=== PATIENT | female | born 1935 | race Caucasian/White ===

== ENCOUNTER 2017-08-07 01:23 | Inpatient (IN) | payer MEDICARE, OTHER ==
[2017-08-07] VITALS (7 sets, daily range): BP systolic 109–145; BP diastolic 61–78
[~2017-08-07] VITALS: Ht 157.5 cm; Wt 78.0 kg
[2017-08-07 01:50] LABS: BASOPHILS % 0.2 % (0.0-1.0); EOSINOPHILS % 0.1 % (0.0-6.0); HEMATOCRIT 37.2 % (34.2-44.1); HEMOGLOBIN 11.4 g/dL (12.0-16.0); LYMPHOCYTES # (AUTO) 4.6 (1.0-3.2); LYMPHOCYTES % 27.3 % (18.0-39.1); MEAN CORPUSCULAR HEMOGLOBIN 21.8 pg (28-32); MEAN CORPUSCULAR HGB CONC 30.6 g/dL (31-35); MEAN CORPUSCULAR VOLUME 71.3 fL (81-99); NEUTROPHILS % 65.9 % (38.7-80.0); PLATELET COUNT 410 x10e3/uL (140-360); RED BLOOD COUNT 5.22 x10e6/uL (3.6-5.1); RED CELL DISTRIBUTION WIDTH 19.9 % (11.7-14.4)
[2017-08-07 01:59] LABS: INR 1.13; PROTHROMBIN TIME 13.6 seconds (11.9-14.5)
[2017-08-07] MEDS ORDERED: KLOR-CON 1010 MEQ PO (02:06)
[2017-08-07] MEDS ORDERED: LEVOTHYROXINE75 MCG PO (02:06)
[2017-08-07] MEDS ORDERED: LISINOPRIL2.5 MG PO (02:06)
[2017-08-07] MEDS ORDERED: SERTRALINE HCL50 MG PO (02:06)
[2017-08-07] MEDS ORDERED: PANTOPRAZOLE SO40 MG PO (02:06)
[2017-08-07] MEDS ORDERED: LEVEMIR100 UNIT/1 (02:06)
[2017-08-07] MEDS ORDERED: FISH OIL 1,0001 EAC3 PO (02:06)
[2017-08-07] MEDS ORDERED: FENOFIBRATE145 MG PO (02:06)
[2017-08-07] MEDS ORDERED: METOPROLOL SUCC25 MG PO (02:06)
[2017-08-07] MEDS ORDERED: VITAMIN D31000 UNI1 PO (02:06)
[2017-08-07] MEDS ORDERED: TEMAZEPAM15 MG PO (02:06)
[2017-08-07] MEDS ORDERED: ETODOLAC300 MG PO (02:06)
[2017-08-07] MEDS ORDERED: OMEGA-3100 MG PO (02:06)
[2017-08-07] MEDS ORDERED: [UNRECOGNIZED DRUG - OTHER] PO (02:06)
[2017-08-07] MEDS ORDERED: OXYBUTYNIN CHLOR5 MG PO (02:06)
[2017-08-07 02:09] LABS: ALBUMIN 3.5 g/dL (3.5-5.0); ALBUMIN/GLOBULIN RATIO 0.9 (0.8-2.0); ANION GAP 15.7 mmol/L (8-16); CALCIUM 9.2 mg/dL (8.4-10.2); CREATININE, SERUM 1.31 mg/dL (0.57-1.11); POTASSIUM 3.7 mmol/L (3.5-5.1)
[2017-08-07 02:16] LABS: CREATINE KINASE MB 1.6 ng/mL (0.00-5.00)
--- NOTE | 2017-08-07 04:00 | Diagnostic Imaging Report ---
CHEST 2 VIEWS, Technique: CHEST 2 VIEWS Comparison: None Clinical history: Cough, congestion DISCUSSION: Limited by body habitus. 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 There is prominent likely left mediastinal fat. No consolidation or edema. No pleural effusion or pneumothorax. Mild approximate L1 compression deformity. IMPRESSION: No acute intrathoracic abnormality Signed by: Dr India Ruffin MD on 08/07/2017 3:56 AM
[2017-08-07] MEDS: AZITHROMYCIN 500MG/NS 250 ML 250 ML IV SCH ×2 (04:48→10:44)
[2017-08-07] MEDS: CEFTRIAXONE SOD 1 GM VIAL IV SCH (04:48)
[2017-08-07] MEDS ORDERED: ONDANSETRON HCL INJ 2 MG/ML VIAL IV PRN (05:00)
[2017-08-07] MEDS: FAMOTIDINE 20 MG/2 ML VIAL IV SCH ×2 (05:00→17:00)
--- OUTSIDE RECORDS SUMMARY | 2017-08-07 05:09 | XMS REPORT ---
Author Author [facility] Address Unknown Phone Unavailable Care Team Providers Care Instrument Technician Name Role Phone JACOBYODALIS Unavailable Unavailable ARNOLDO BENITES Unavailable Unavailable Problems This patient has no known problems. Allergies, Adverse Reactions, Alerts This patient has no known allergies or adverse reactions. Medications This patient has no known medications. Results Test Description Test Time Test Comments Text Results Atomic Results Result Comments BLOOD CULTURE 2016-08-15 15:00:00 CULTURE (BEAKER) (test lsta=5341) No growth in 5 days BLOOD [id number] 15:00:00* Test Item Value Reference Range Comments CULTURE (BEAKER) (test fvar=5974) No growth in 5 days POCT-GLUCOSE [id number] 16:10:00* Test Item Value Reference Range Comments POC-GLUCOSE METER (BEAKER) (test awgp=1107) 186 mg/dL 70-110 TESTED AT [facility] [address] [facility] [address] POCT-GLUCOSE [id number] 11:21:00* Test Item Value Reference Range Comments POC-GLUCOSE METER (BEAKER) (test qjsa=1986) 182 mg/dL 70-110 TESTED AT [facility] [address] [facility] [address] CBC W/PLT COUNT & AUTO [id number] 04:51:00* Test Item Value Reference Range Comments WHITE BLOOD CELL COUNT (BEAKER) (test mfoa=395) 12.3 K/ L 4.0-10.0 RED BLOOD CELL COUNT (BEAKER) (test wvlu=207) 4.06 M/ L 4.00-5.00 HEMOGLOBIN (BEAKER) (test tszj=666) 9.9 GM/DL 12.0-15.0 HEMATOCRIT (BEAKER) (test skdl=007) 31.3 % 36.0-45.0 MEAN CORPUSCULAR VOLUME (BEAKER) (test ahtv=564) 76.9 fL 82.0-99.0 MEAN CORPUSCULAR HEMOGLOBIN (BEAKER) (test szod=713) 24.4 pg 27.0-33.0 MEAN CORPUSCULAR HEMOGLOBIN CONC (BEAKER) (test ijce=495) 31.7 GM/DL 32.0- 36.0 RED CELL DISTRIBUTION WIDTH (BEAKER) (test cktq=621) 21.8 % 12.0-15.0 PLATELET COUNT (BEAKER) (test urzg=705) 431 K/CU MM 150-430 MEAN PLATELET VOLUME (BEAKER) (test vqyn=822) 8.4 fL 6.5-10.5 NUCLEATED RED BLOOD CELLS (BEAKER) (test edyx=943) 0 /100 WBC 0-0 NEUTROPHILS RELATIVE PERCENT (BEAKER) (test dsbq=756) 53 % LYMPHOCYTES RELATIVE PERCENT (BEAKER) (test yhnw=032) 30 % MONOCYTES RELATIVE PERCENT (BEAKER) (test htip=828) 8 % EOSINOPHILS RELATIVE PERCENT (BEAKER) (test dycp=646) 8 % BASOPHILS RELATIVE PERCENT (BEAKER) (test jnah=088) 0 % NEUTROPHILS ABSOLUTE COUNT (BEAKER) (test jygz=924) 6.50 K/ L 1.80-8.00 LYMPHOCYTES ABSOLUTE COUNT (BEAKER) (test jxkd=409) 3.70 K/ L 1.48-4.50 MONOCYTES ABSOLUTE COUNT (BEAKER) (test pnmo=188) 1.00 K/ L 0.00-1.30 EOSINOPHILS ABSOLUTE COUNT (BEAKER) (test tlcp=355) 1.00 K/ L 0.00-0.50 BASOPHILS ABSOLUTE COUNT (BEAKER) (test ppwf=335) 0.00 K/ L 0.00-0.20 POCT-GLUCOSE [id number] 04:46:00* Test Item Value Reference Range Comments POC-GLUCOSE METER (BEAKER) (test rzph=9972) 173 mg/dL 70-110 TESTED AT [facility] [address] [facility] [address] POCT-GLUCOSE [id number] 20:39:00* Test Item Value Reference Range Comments POC-GLUCOSE METER (BEAKER) (test ohij=2574) 188 mg/dL 70-110 TESTED AT [facility] [address] [facility] [address] POCT-GLUCOSE [id number] 16:59:00* Test Item Value Reference Range Comments POC-GLUCOSE METER (BEAKER) (test xlej=3274) 249 mg/dL 70-110 TESTED AT [facility] [address] [facility] [address] POCT-GLUCOSE [id number] 11:29:00* Test Item Value Reference Range Comments POC-GLUCOSE METER (BEAKER) (test wnjj=1275) 207 mg/dL 70-110 TESTED AT [facility] [address] [facility] [address] SPUTUM CULTURE + GRAM [id number] 10:50:00* Test Item Value Reference Range Comments CULTURE (BEAKER) (test efge=8489) 2+ Normal respiratory rivka present GRAM STAIN RESULT (BEAKER) (test sfma=8116) 1+ WBCs GRAM STAIN RESULT (BEAKER) (test lvmc=75275) 2+ epithelial cells includes columnar epithelial cells GRAM STAIN RESULT (BEAKER) (test thjm=565730) 2+ budding yeast GRAM STAIN RESULT (BEAKER) (test nmaw=081221) Rare gram positive cocci POCT-GLUCOSE [id number] 05:37:00* Test Item Value Reference Range Comments POC-GLUCOSE METER (BEAKER) (test efqo=1750) 172 mg/dL 70-110 TESTED AT [facility] [address] [facility] [address] CBC W/PLT COUNT & AUTO [id number] 05:23:00* Test Item Value Reference Range Comments WHITE BLOOD CELL COUNT (BEAKER) (test yvbd=920) 13.6 K/ L 4.0-10.0 RED BLOOD CELL COUNT (BEAKER) (test sarq=841) 3.89 M/ L 4.00-5.00 HEMOGLOBIN (BEAKER) (test megu=132) 9.4 GM/DL 12.0-15.0 HEMATOCRIT (BEAKER) (test aers=771) 29.7 % 36.0-45.0 MEAN CORPUSCULAR VOLUME (BEAKER) (test sosw=794) 76.4 fL 82.0-99.0 MEAN CORPUSCULAR HEMOGLOBIN (BEAKER) (test falv=806) 24.3 pg 27.0-33.0 MEAN CORPUSCULAR HEMOGLOBIN CONC (BEAKER) (test mfce=115) 31.8 GM/DL 32.0- 36.0 RED CELL DISTRIBUTION WIDTH (BEAKER) (test tpmw=611) 22.0 % 12.0-15.0 PLATELET COUNT (BEAKER) (test onpu=535) 351 K/CU MM 150-430 MEAN PLATELET VOLUME (BEAKER) (test jccq=825) 8.7 fL 6.5-10.5 NUCLEATED RED BLOOD CELLS (BEAKER) (test ijjm=356) 0 /100 WBC 0-0 NEUTROPHILS RELATIVE PERCENT (BEAKER) (test tkkc=075) 53 % LYMPHOCYTES RELATIVE PERCENT (BEAKER) (test iflv=284) 32 % MONOCYTES RELATIVE PERCENT (BEAKER) (test jmof=580) 7 % EOSINOPHILS RELATIVE PERCENT (BEAKER) (test nusn=004) 8 % BASOPHILS RELATIVE PERCENT (BEAKER) (test minh=564) 0 % NEUTROPHILS ABSOLUTE COUNT (BEAKER) (test xxzh=637) 7.20 K/ L 1.80-8.00 LYMPHOCYTES ABSOLUTE COUNT (BEAKER) (test cwei=632) 4.40 K/ L 1.48-4.50 MONOCYTES ABSOLUTE COUNT (BEAKER) (test swkw=640) 1.00 K/ L 0.00-1.30 EOSINOPHILS ABSOLUTE COUNT (BEAKER) (test gwom=984) 1.00 K/ L 0.00-0.50 BASOPHILS ABSOLUTE COUNT (BEAKER) (test nfhz=709) 0.10 K/ L 0.00-0.20 POCT-GLUCOSE [id number] 21:14:00* Test Item Value Reference Range Comments POC-GLUCOSE METER (BEAKER) (test tjwu=2018) 137 mg/dL 70-110 TESTED AT [facility] [address] [facility] [address] POCT-GLUCOSE [id number] 17:28:00* Test Item Value Reference Range Comments POC-GLUCOSE METER (BEAKER) (test sajn=1306) 260 mg/dL 70-110 TESTED AT [facility] [address] [facility] [address] POCT-GLUCOSE [id number] 11:10:00* Test Item Value Reference Range Comments POC-GLUCOSE METER (BEAKER) (test rghu=7147) 187 mg/dL 70-110 TESTED AT [facility] [address] [facility] [address] POCT-GLUCOSE [id number] 06:29:00* Test Item Value Reference Range Comments POC-GLUCOSE METER (BEAKER) (test jail=2605) 184 mg/dL 70-110 TESTED AT [facility] [address] [facility] [address] COMPREHENSIVE METABOLIC [id number] 05:20:00* Test Item Value Reference Range Comments TOTAL PROTEIN (BEAKER) (test ptwf=671) 6.5 gm/dL 6.0-8.5 ALBUMIN (BEAKER) (test ngmz=7983) 3.2 g/dL 3.5-5.0 ALKALINE PHOSPHATASE (BEAKER) (test ujhs=920) 72 U/L 30-115 BILIRUBIN TOTAL (BEAKER) (test txsf=969) 0.3 mg/dL 0.1-1.3 SODIUM (BEAKER) (test cvnq=007) 140 meq/L 135-148 POTASSIUM (BEAKER) (test xzhp=962) 4.0 meq/L 3.5-5.5 CHLORIDE (BEAKER) (test ufyo=363) 104 meq/L 98-106 CO2 (BEAKER) (test arty=297) 26 meq/L 20-31 BLOOD UREA NITROGEN (BEAKER) (test jvhv=895) 14 mg/dL 10-26 CREATININE (BEAKER) (test mqyo=903) 1.42 mg/dL 0.50-1.20 GLUCOSE RANDOM (BEAKER) (test exao=358) 174 mg/dL 70-110 CALCIUM (BEAKER) (test woal=775) 8.8 mg/dL 8.5-10.5 AST (SGOT) (BEAKER) (test nfnf=032) 21 U/L 5-40 ALT (SGPT) (BEAKER) (test ctxk=158) 12 U/L 6-50 EGFR (BEAKER) (test baxz=4132) 35 mL/min/1.73 sq m ESTIMATED GFR IS NOT ACCURATE CREATININE CLEARANCE IN PREDICTING GLOMERULAR FILTRATION RATE. ESTIMATED GFR IS NOT APPLICABLE FOR DIALYSIS PATIENTS. CBC W/PLT COUNT & AUTO [id number] 04:53:00* Test Item Value Reference Range Comments WHITE BLOOD CELL COUNT (BEAKER) (test dkvm=079) 13.3 K/ L 4.0-10.0 RED BLOOD CELL COUNT (BEAKER) (test ehob=403) 4.10 M/ L 4.00-5.00 HEMOGLOBIN (BEAKER) (test ucpr=343) 9.8 GM/DL 12.0-15.0 HEMATOCRIT (BEAKER) (test tdtl=156) 31.6 % 36.0-45.0 MEAN CORPUSCULAR VOLUME (BEAKER) (test pytx=248) 77.1 fL 82.0-99.0 MEAN CORPUSCULAR HEMOGLOBIN (BEAKER) (test mifw=961) 23.9 pg 27.0-33.0 MEAN CORPUSCULAR HEMOGLOBIN CONC (BEAKER) (test psxh=552) 31.0 GM/DL 32.0- 36.0 RED CELL DISTRIBUTION WIDTH (BEAKER) (test gfoc=258) 21.8 % 12.0-15.0 PLATELET COUNT (BEAKER) (test yojl=325) 329 K/CU MM 150-430 MEAN PLATELET VOLUME (BEAKER) (test yzuu=213) 8.3 fL 6.5-10.5 NUCLEATED RED BLOOD CELLS (BEAKER) (test vkca=545) 0 /100 WBC 0-0 NEUTROPHILS RELATIVE PERCENT (BEAKER) (test wcry=509) 54 % LYMPHOCYTES RELATIVE PERCENT (BEAKER) (test jtsd=909) 30 % MONOCYTES RELATIVE PERCENT (BEAKER) (test qaiu=367) 8 % EOSINOPHILS RELATIVE PERCENT (BEAKER) (test mhiv=895) 8 % BASOPHILS RELATIVE PERCENT (BEAKER) (test knev=252) 0 % NEUTROPHILS ABSOLUTE COUNT (BEAKER) (test ubil=278) 7.10 K/ L 1.80-8.00 LYMPHOCYTES ABSOLUTE COUNT (BEAKER) (test bnig=950) 4.00 K/ L 1.48-4.50 MONOCYTES ABSOLUTE COUNT (BEAKER) (test kfyj=357) 1.10 K/ L 0.00-1.30 EOSINOPHILS ABSOLUTE COUNT (BEAKER) (test rfpg=873) 1.00 K/ L 0.00-0.50 BASOPHILS ABSOLUTE COUNT (BEAKER) (test oner=927) 0.00 K/ L 0.00-0.20 POCT-GLUCOSE [id number] 21:18:00* Test Item Value Reference Range Comments POC-GLUCOSE METER (BEAKER) (test ogos=9253) 195 mg/dL 70-110 TESTED AT [facility] [address] [facility] [address] POCT-GLUCOSE [id number] 17:09:00* Test Item Value Reference Range Comments POC-GLUCOSE METER (BEAKER) (test jyrn=5958) 198 mg/dL 70-110 TESTED AT [facility] [address] [facility] [address] [id number] 12:09:00* Test Item Value Reference Range Comments PROCALCITONIN (BEAKER) (test mllr=0771) 0.15 ng/mL <0.05 SEPSIS RISK (ng/mL)Low: 0.05-0.50Intermediate: 0.51-2.00High: > =2.01POCT-GLUCOSE [id number] 11:21:00* Test Item Value Reference Range Comments POC-GLUCOSE METER (BEAKER) (test fssw=8667) 123 mg/dL 70-110 TESTED AT [facility] [address] [facility] [address] POCT-GLUCOSE [id number] 05:13:00* Test Item Value Reference Range Comments POC-GLUCOSE METER (BEAKER) (test iffe=2387) 147 mg/dL 70-110 TESTED AT [facility] [address] [facility] [address] B-TYPE NATRIURETIC FACTOR (BNP)2016-08-10 05:07:00* Test Item Value Reference Range Comments B-TYPE NATRIURETIC PEPTIDE (BEAKER) (test recv=243) 627 pg/mL 0-100 BASIC METABOLIC [id number] 05:00:00* Test Item Value Reference Range Comments SODIUM (BEAKER) (test amnl=294) 139 meq/L 135-148 POTASSIUM (BEAKER) (test ordi=832) 4.2 meq/L 3.5-5.5 CHLORIDE (BEAKER) (test zxby=765) 103 meq/L 98-106 CO2 (BEAKER) (test kqnu=902) 26 meq/L 20-31 BLOOD UREA NITROGEN (BEAKER) (test anre=755) 12 mg/dL 10-26 CREATININE (BEAKER) (test czon=881) 1.30 mg/dL 0.50-1.20 GLUCOSE RANDOM (BEAKER) (test vbia=122) 133 mg/dL 70-110 CALCIUM (BEAKER) (test xnps=362) 8.8 mg/dL 8.5-10.5 EGFR (BEAKER) (test ttyu=0719) 39 mL/min/1.73 sq m ESTIMATED GFR IS NOT ACCURATE CREATININE CLEARANCE IN PREDICTING GLOMERULAR FILTRATION RATE. ESTIMATED GFR IS NOT APPLICABLE FOR DIALYSIS PATIENTS. CBC W/PLT COUNT & AUTO [id number] 04:47:00* Test Item Value Reference Range Comments WHITE BLOOD CELL COUNT (BEAKER) (test fahi=303) 15.1 K/ L 4.0-10.0 RED BLOOD CELL COUNT (BEAKER) (test pvrz=586) 4.02 M/ L 4.00-5.00 HEMOGLOBIN (BEAKER) (test andm=085) 9.7 GM/DL 12.0-15.0 HEMATOCRIT (BEAKER) (test zlzb=787) 31.1 % 36.0-45.0 MEAN CORPUSCULAR VOLUME (BEAKER) (test tkeg=513) 77.4 fL 82.0-99.0 MEAN CORPUSCULAR HEMOGLOBIN (BEAKER) (test mmxb=364) 24.0 pg 27.0-33.0 MEAN CORPUSCULAR HEMOGLOBIN CONC (BEAKER) (test bafd=394) 31.1 GM/DL 32.0- 36.0 RED CELL DISTRIBUTION WIDTH (BEAKER) (test ixac=984) 22.2 % 12.0-15.0 PLATELET COUNT (BEAKER) (test qlmb=014) 271 K/CU MM 150-430 MEAN PLATELET VOLUME (BEAKER) (test utha=669) 8.2 fL 6.5-10.5 NUCLEATED RED BLOOD CELLS (BEAKER) (test cwdl=494) 0 /100 WBC 0-0 NEUTROPHILS RELATIVE PERCENT (BEAKER) (test ichr=135) 55 % LYMPHOCYTES RELATIVE PERCENT (BEAKER) (test wovm=005) 29 % MONOCYTES RELATIVE PERCENT (BEAKER) (test jqye=884) 10 % EOSINOPHILS RELATIVE PERCENT (BEAKER) (test hljp=665) 6 % BASOPHILS RELATIVE PERCENT (BEAKER) (test ttiv=887) 0 % NEUTROPHILS ABSOLUTE COUNT (BEAKER) (test cday=418) 8.30 K/ L 1.80-8.00 LYMPHOCYTES ABSOLUTE COUNT (BEAKER) (test hlkt=008) 4.40 K/ L 1.48-4.50 MONOCYTES ABSOLUTE COUNT (BEAKER) (test pbas=812) 1.40 K/ L 0.00-1.30 EOSINOPHILS ABSOLUTE COUNT (BEAKER) (test fqcv=824) 0.90 K/ L 0.00-0.50 BASOPHILS ABSOLUTE COUNT (BEAKER) (test pkqz=457) 0.00 K/ L 0.00-0.20 POCT-GLUCOSE [id number] 21:18:00* Test Item Value Reference Range Comments POC-GLUCOSE METER (BEAKER) (test dkiw=3737) 185 mg/dL 70-110 TESTED AT [facility] [id number] [place] [address] POCT-GLUCOSE [id number] 16:33:00* Test Item Value Reference Range Comments POC-GLUCOSE METER (BEAKER) (test rvvr=1100) 226 mg/dL 70-110 TESTED AT [facility] [id number] [place] [address] POCT-GLUCOSE [id number] 11:35:00* Test Item Value Reference Range Comments POC-GLUCOSE METER (BEAKER) (test jxbk=9179) 209 mg/dL 70-110 TESTED AT [facility] [id number] [place] [address] POCT-GLUCOSE [id number] 05:34:00* Test Item Value Reference Range Comments POC-GLUCOSE METER (BEAKER) (test dosm=4082) 166 mg/dL 70-110 TESTED AT [facility] [id number] [place] [address] CBC W/PLT COUNT & AUTO [id number] 04:27:00* Test Item Value Reference Range Comments WHITE BLOOD CELL COUNT (BEAKER) (test vdta=898) 10.6 K/ L 4.0-10.0 RED BLOOD CELL COUNT (BEAKER) (test upsm=961) 3.78 M/ L 4.00-5.00 HEMOGLOBIN (BEAKER) (test uctm=470) 9.3 GM/DL 12.0-15.0 HEMATOCRIT (BEAKER) (test tbjz=788) 29.0 % 36.0-45.0 MEAN CORPUSCULAR VOLUME (BEAKER) (test hogp=183) 76.7 fL 82.0-99.0 MEAN CORPUSCULAR HEMOGLOBIN (BEAKER) (test slor=287) 24.4 pg 27.0-33.0 MEAN CORPUSCULAR HEMOGLOBIN CONC (BEAKER) (test lgoq=688) 31.9 GM/DL 32.0- 36.0 RED CELL DISTRIBUTION WIDTH (BEAKER) (test bwfz=910) 21.6 % 12.0-15.0 PLATELET COUNT (BEAKER) (test gphw=485) 231 K/CU MM 150-430 MEAN PLATELET VOLUME (BEAKER) (test dwkw=950) 8.4 fL 6.5-10.5 NUCLEATED RED BLOOD CELLS (BEAKER) (test qnrn=750) 0 /100 WBC 0-0 NEUTROPHILS RELATIVE PERCENT (BEAKER) (test qvfp=864) 63 % LYMPHOCYTES RELATIVE PERCENT (BEAKER) (test szrb=307) 27 % MONOCYTES RELATIVE PERCENT (BEAKER) (test vqpi=296) 7 % EOSINOPHILS RELATIVE PERCENT (BEAKER) (test hybt=240) 4 % BASOPHILS RELATIVE PERCENT (BEAKER) (test cclm=143) 0 % NEUTROPHILS ABSOLUTE COUNT (BEAKER) (test xfwx=061) 6.60 K/ L 1.80-8.00 LYMPHOCYTES ABSOLUTE COUNT (BEAKER) (test avgs=929) 2.80 K/ L 1.48-4.50 MONOCYTES ABSOLUTE COUNT (BEAKER) (test rndg=345) 0.70 K/ L 0.00-1.30 EOSINOPHILS ABSOLUTE COUNT (BEAKER) (test gnep=313) 0.40 K/ L 0.00-0.50 BASOPHILS ABSOLUTE COUNT (BEAKER) (test yylv=670) 0.00 K/ L 0.00-0.20 BASIC METABOLIC [id number] 04:24:00* Test Item Value Reference Range Comments SODIUM (BEAKER) (test eenm=999) 140 meq/L 135-148 POTASSIUM (BEAKER) (test eudp=237) 4.1 meq/L 3.5-5.5 CHLORIDE (BEAKER) (test veim=247) 105 meq/L 98-106 CO2 (BEAKER) (test utwg=700) 25 meq/L 20-31 BLOOD UREA NITROGEN (BEAKER) (test swrj=960) 16 mg/dL 10-26 CREATININE (BEAKER) (test pkxx=215) 1.19 mg/dL 0.50-1.20 GLUCOSE RANDOM (BEAKER) (test cewt=578) 138 mg/dL 70-110 CALCIUM (BEAKER) (test ubwj=152) 8.3 mg/dL 8.5-10.5 EGFR (BEAKER) (test czra=1904) 43 mL/min/1.73 sq m ESTIMATED GFR IS NOT ACCURATE CREATININE CLEARANCE IN PREDICTING GLOMERULAR FILTRATION RATE. ESTIMATED GFR IS NOT APPLICABLE FOR DIALYSIS PATIENTS. POCT-GLUCOSE [id number] 21:05:00* Test Item Value Reference Range Comments POC-GLUCOSE METER (BEAKER) (test cecn=5672) 231 mg/dL 70-110 TESTED AT [facility] [address] [facility] [address] POCT-GLUCOSE [id number] 16:19:00* Test Item Value Reference Range Comments POC-GLUCOSE METER (BEAKER) (test dpii=3152) 179 mg/dL 70-110 TESTED AT [facility] [address] [facility] [address] POCT-GLUCOSE [id number] 05:57:00* Test Item Value Reference Range Comments POC-GLUCOSE METER (BEAKER) (test knke=3356) 140 mg/dL 70-110 TESTED AT [facility] [address] [facility] [address] [id number] 05:25:00* Test Item Value Reference Range Comments PHOSPHORUS (BEAKER) (test tusx=733) 1.9 mg/dL 2.5-4.5 [id number] 05:25:00* Test Item Value Reference Range Comments MAGNESIUM (BEAKER) (test sdgf=237) 1.3 mg/dL 1.5-3.0 BASIC METABOLIC [id number] 05:25:00* Test Item Value Reference Range Comments SODIUM (BEAKER) (test xmfu=310) 140 meq/L 135-148 POTASSIUM (BEAKER) (test esaz=281) 4.2 meq/L 3.5-5.5 CHLORIDE (BEAKER) (test asmf=592) 109 meq/L 98-106 CO2 (BEAKER) (test djnh=482) 25 meq/L 20-31 BLOOD UREA NITROGEN (BEAKER) (test ails=395) 20 mg/dL 10-26 CREATININE (BEAKER) (test bgmb=198) 1.20 mg/dL 0.50-1.20 GLUCOSE RANDOM (BEAKER) (test qrmk=492) 127 mg/dL 70-110 CALCIUM (BEAKER) (test gfkq=371) 8.3 mg/dL 8.5-10.5 EGFR (BEAKER) (test djop=8726) 43 mL/min/1.73 sq m ESTIMATED GFR IS NOT ACCURATE CREATININE CLEARANCE IN PREDICTING GLOMERULAR FILTRATION RATE. ESTIMATED GFR IS NOT APPLICABLE FOR DIALYSIS PATIENTS. CBC W/PLT COUNT & AUTO [id number] 04:54:00* Test Item Value Reference Range Comments WHITE BLOOD CELL COUNT (BEAKER) (test jxph=729) 10.6 K/ L 4.0-10.0 RED BLOOD CELL COUNT (BEAKER) (test wutc=573) 3.82 M/ L 4.00-5.00 HEMOGLOBIN (BEAKER) (test yawl=213) 9.1 GM/DL 12.0-15.0 HEMATOCRIT (BEAKER) (test yuug=572) 29.3 % 36.0-45.0 MEAN CORPUSCULAR VOLUME (BEAKER) (test kjdz=801) 76.7 fL 82.0-99.0 MEAN CORPUSCULAR HEMOGLOBIN (BEAKER) (test tpkm=345) 23.8 pg 27.0-33.0 MEAN CORPUSCULAR HEMOGLOBIN CONC (BEAKER) (test cmly=852) 31.1 GM/DL 32.0- 36.0 RED CELL DISTRIBUTION WIDTH (BEAKER) (test qfvg=607) 21.5 % 12.0-15.0 PLATELET COUNT (BEAKER) (test fmqn=210) 227 K/CU MM 150-430 MEAN PLATELET VOLUME (BEAKER) (test equk=880) 7.8 fL 6.5-10.5 NUCLEATED RED BLOOD CELLS (BEAKER) (test vsjo=551) 0 /100 WBC 0-0 NEUTROPHILS RELATIVE PERCENT (BEAKER) (test bcxt=652) 65 % LYMPHOCYTES RELATIVE PERCENT (BEAKER) (test njmq=154) 24 % MONOCYTES RELATIVE PERCENT (BEAKER) (test gmvi=359) 6 % EOSINOPHILS RELATIVE PERCENT (BEAKER) (test bkex=750) 5 % BASOPHILS RELATIVE PERCENT (BEAKER) (test gzcd=850) 0 % NEUTROPHILS ABSOLUTE COUNT (BEAKER) (test tdkl=384) 6.90 K/ L 1.80-8.00 LYMPHOCYTES ABSOLUTE COUNT (BEAKER) (test yatt=157) 2.50 K/ L 1.48-4.50 MONOCYTES ABSOLUTE COUNT (BEAKER) (test brzs=497) 0.60 K/ L 0.00-1.30 EOSINOPHILS ABSOLUTE COUNT (BEAKER) (test lnkt=448) 0.50 K/ L 0.00-0.50 BASOPHILS ABSOLUTE COUNT (BEAKER) (test ngyb=612) 0.00 K/ L 0.00-0.20 POCT-GLUCOSE [id number] 21:32:00* Test Item Value Reference Range Comments POC-GLUCOSE METER (BEAKER) (test tgfa=2439) 248 mg/dL 70-110 TESTED AT [facility] [address] [facility] [address] POCT-GLUCOSE [id number] 16:42:00* Test Item Value Reference Range Comments POC-GLUCOSE METER (BEAKER) (test owfj=6586) 214 mg/dL 70-110 TESTED AT [facility] [id number] [place] [address] POCT-GLUCOSE [id number] 11:49:00* Test Item Value Reference Range Comments POC-GLUCOSE METER (BEAKER) (test tzvg=1609) 197 mg/dL 70-110 TESTED AT [facility] [address] [facility] [address] POCT-GLUCOSE [id number] 07:28:00* Test Item Value Reference Range Comments POC-GLUCOSE METER (BEAKER) (test frtw=5666) 151 mg/dL 70-110 TESTED AT [facility] [id number] [place] [address] [id number] 05:36:00* Test Item Value Reference Range Comments PHOSPHORUS (BEAKER) (test egie=028) 1.8 mg/dL 2.5-4.5 [id number] 05:36:00* Test Item Value Reference Range Comments MAGNESIUM (BEAKER) (test kqmx=901) 1.8 mg/dL 1.5-3.0 BASIC METABOLIC [id number] 05:36:00* Test Item Value Reference Range Comments SODIUM (BEAKER) (test poou=990) 142 meq/L 135-148 POTASSIUM (BEAKER) (test tgcs=264) 3.8 meq/L 3.5-5.5 CHLORIDE (BEAKER) (test qrsh=312) 110 meq/L 98-106 CO2 (BEAKER) (test mlhs=417) 27 meq/L 20-31 BLOOD UREA NITROGEN (BEAKER) (test tzzw=242) 24 mg/dL 10-26 CREATININE (BEAKER) (test nlhw=455) 1.44 mg/dL 0.50-1.20 GLUCOSE RANDOM (BEAKER) (test bcer=619) 137 mg/dL 70-110 CALCIUM (BEAKER) (test ovpg=331) 8.2 mg/dL 8.5-10.5 EGFR (BEAKER) (test jpex=1313) 35 mL/min/1.73 sq m ESTIMATED GFR IS NOT ACCURATE CREATININE CLEARANCE IN PREDICTING GLOMERULAR FILTRATION RATE. ESTIMATED GFR IS NOT APPLICABLE FOR DIALYSIS PATIENTS. HEMOGLOBIN [id number] 05:32:00* Test Item Value Reference Range Comments HEMOGLOBIN A1C (BEAKER) (test qult=543) 8.4 % 4.3-6.1 CBC W/PLT COUNT & AUTO [id number] 05:14:00* Test Item Value Reference Range Comments WHITE BLOOD CELL COUNT (BEAKER) (test ruil=649) 10.1 K/ L 4.0-10.0 RED BLOOD CELL COUNT (BEAKER) (test keah=622) 3.89 M/ L 4.00-5.00 HEMOGLOBIN (BEAKER) (test cyut=427) 9.4 GM/DL 12.0-15.0 HEMATOCRIT (BEAKER) (test qdou=402) 29.8 % 36.0-45.0 MEAN CORPUSCULAR VOLUME (BEAKER) (test yjdy=508) 76.5 fL 82.0-99.0 MEAN CORPUSCULAR HEMOGLOBIN (BEAKER) (test pxpz=125) 24.1 pg 27.0-33.0 MEAN CORPUSCULAR HEMOGLOBIN CONC (BEAKER) (test zvwz=127) 31.5 GM/DL 32.0- 36.0 RED CELL DISTRIBUTION WIDTH (BEAKER) (test qkmn=149) 21.1 % 12.0-15.0 PLATELET COUNT (BEAKER) (test otgx=204) 234 K/CU MM 150-430 MEAN PLATELET VOLUME (BEAKER) (test vafk=606) 7.8 fL 6.5-10.5 NUCLEATED RED BLOOD CELLS (BEAKER) (test ftrn=341) 0 /100 WBC 0-0 NEUTROPHILS RELATIVE PERCENT (BEAKER) (test kodo=368) 67 % LYMPHOCYTES RELATIVE PERCENT (BEAKER) (test faap=862) 23 % MONOCYTES RELATIVE PERCENT (BEAKER) (test kmax=196) 5 % EOSINOPHILS RELATIVE PERCENT (BEAKER) (test zwgs=914) 5 % BASOPHILS RELATIVE PERCENT (BEAKER) (test thje=519) 0 % NEUTROPHILS ABSOLUTE COUNT (BEAKER) (test xpfo=468) 6.80 K/ L 1.80-8.00 LYMPHOCYTES ABSOLUTE COUNT (BEAKER) (test nzri=245) 2.40 K/ L 1.48-4.50 MONOCYTES ABSOLUTE COUNT (BEAKER) (test wjao=620) 0.50 K/ L 0.00-1.30 EOSINOPHILS ABSOLUTE COUNT (BEAKER) (test atoh=901) 0.50 K/ L 0.00-0.50 BASOPHILS ABSOLUTE COUNT (BEAKER) (test fvft=442) 0.00 K/ L 0.00-0.20 POCT-GLUCOSE [id number] 21:02:00* Test Item Value Reference Range Comments POC-GLUCOSE METER (DEIDREAKER) (test oagn=2023) 144 mg/dL 70-110 TESTED AT [facility] [address] [facility] [address] POCT-GLUCOSE [id number] 16:40:00* Test Item Value Reference Range Comments POC-GLUCOSE METER (DEIDREAKER) (test djhj=3050) 219 mg/dL 70-110 TESTED AT [facility] [address] [facility] [address] CHEST 2 VIEWS [facility] [address] [place] [address] Patient Name: OVI RODRIGUEZ MR #: [id number] : 1935 Age/Sex: 82/F Req #: [id number] Adm Physician: Ordered by: ODALIS DOZIER MD Report #: [id number] Location: ER Room/Bed: Procedure: [id number] DX/ CHEST 2 VIEWS Exam Date: 08/07/17 Exam Time: 0205 REPORT STATUS: Signed CHEST 2 VIEWS, Technique: CHEST 2 VIEWS Comparison: None Clinical history: Cough, congestion DISCUSSION: Limited by body habitus. 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 There is prominent likely left mediastinal fat. No consolidation or edema. No pleural effusion or pneumothorax. Mild approximate L1 compression deformity. IMPRESSION: No acute intrathoracic abnormality Signed by : Dr Blayne Ruffin MD on 08/07/2017 3:56 AM Dictated By: BLAYNE RUFFIN MD 5 Transcribed By: AMADEO on 08/07/17355 COPY TO: ODALIS DOZIER MD
--- OUTSIDE RECORDS SUMMARY | 2017-08-07 05:09 | XMS REPORT | Clinical Summary ---
Author Author JOHN NEWLINE SOFTWARESt[facility] Address Unknown Phone Unavailable Care Team Providers Care Strategic Intelligence Officer Name Role Phone PCP Unavailable Allergies Active Allergy Reactions Severity Noted Date Comments Codeine Other (See Comments) 06/13/2016 HEADACHE Iodine And Iodide Rash Low 06/13/2016 Containing Products Sulfa (Sulfonamide Rash Low 06/13/2016 Antibiotics) Current Medications Prescription Sig. Disp. Refills Start End Date Status Date potassium chloride Take 10 mEq by mouth 2 Active (KLOR-CON) 10 MEQ CR (two) times daily . tablet sertraline (ZOLOFT) 50 MG Take 50 mg by mouth Active tablet daily. fenofibrate Take 160 mg by mouth Active (TRIGLIDE,LOFIBRA) 160 MG daily. tablet lisinopril Take 2.5 mg by mouth Active (PRINIVIL,ZESTRIL) 2.5 MG daily. tablet etodolac (LODINE) 300 MG Take 300 mg by mouth 2 Active capsule (two) times daily . metoprolol (LOPRESSOR) 25 Take 25 mg by mouth 2 Active MG tablet (two) times daily. rOPINIRole (REQUIP) 1 MG Take 1 mg by mouth Active tablet nightly. temazepam (RESTORIL) 30 Take 30 mg by mouth every Active mg capsule night as needed for Sleep. oxybutynin (DITROPAN) 5 Take 5 mg by mouth daily Active MG tablet . pantoprazole (PROTONIX) Take 40 mg by mouth Active 40 MG tablet daily. levothyroxine (SYNTHROID, Take 125 mcg by mouth Active LEVOTHROID) 125 MCG Every morning on an empty tablet stomach. omega-3 acid ethyl esters Take 2 g by mouth 2 (two) Active (LOVAZA) 1 gram capsule times daily. multivitamin Take 1 tablet by mouth Active (MULTIVITAMIN) per tablet daily. cholecalciferol (VITAMIN Take 1,000 Units by mouth Active D3) 1,000 unit tablet daily. b complex vitamins tablet Take 1 tablet by mouth Active daily. COLLAGEN MISC Take 1 capsule by mouth 2 Active (two) times daily. insulin detemir (LEVEMIR) Inject 15 Units Active 100 unit/mL (3 mL) InPn subcutaneously nightly . injection sacubitril-valsartan Take 1 tablet by mouth 2 Active (ENTRESTO) 24-26 mg Tab (two) times daily. furosemide (LASIX) 40 MG Take 20 mg by mouth 2 Active tablet (two) times daily . spironolactone Take 12.5 mg by mouth Active (ALDACTONE) 25 MG tablet daily . piperacillin-tazobactam Inject 2.25 g 0 08/08/19 Active (ZOSYN) 2.25 g in sodium intravenously every 6 17 chloride 0.9 % (NS) 100 (six) hours. mL ADD EASE IVPB potassium, sodium Take 2 packets by mouth 3 0 08/08/19 Active phosphates (PHOS-NAK) (three) times daily with 17 280-160-250 mg PwPk meals. packet insulin lispro (HUMALOG) Inject 0-4 Units 10 mL 0 08/08/19 08/08/19 Active 100 unit/mL injection subcutaneously every 17 18 night as needed (High blood sugar). insulin lispro (HUMALOG) Inject 0-12 Units 10 mL 0 08/08/19 Active 100 unit/mL injection subcutaneously as needed 17 18 (High blood sugar). insulin detemir (LEVEMIR) Inject 15 Units 10 mL 0 08/08/19 08/08/19 Active 100 unit/mL injection subcutaneously nightly. 17 18 heparin injection 5,000 Inject 1 mL (5,000 Units 1 mL 0 08/08/19 Active units/mL for DVT total) subcutaneously 17 prophylaxis/dialysis every 8 (eight) hours. lock/IV bolus meropenem (MERREM) 1 g in Inject 1 g intravenously 0 08/13/19 Active sodium chloride 0.9% (NS) every 8 (eight) hours. 17 100 mL ADD EASE IVPB acetaminophen (TYLENOL) Take 2 tablets (650 mg 30 tablet 0 08/08/19 08/03/19 325 MG tablet total) by mouth every 4 17 18 (four) hours as needed for Fever (greater than 100.4F) for up to 360 days. Active Problems Problem Noted Date Postoperative hypovolemic shock, initial encounter 07/31/2016 Junctional cardiac arrhythmia 07/31/2016 Leukocytosis 07/31/2016 Acute kidney failure (HCC) 07/31/2016 Hyperkalemia, diminished renal excretion 07/31/2016 Pleural effusion due to CHF (congestive heart failure) (HCC) 07/31/2016 Recurrent ventral incisional hernia 07/29/2016 Encounters Date Type Specialty Care Team Description 07/29/2016 [facility] Internal Medicine Jackson Rojas MD Recurrent ventral - Encounter incisional 08/13/2016 hernia;Postoperative hypovolemic shock, initial encounter;Junctional cardiac arrhythmia;Acute renal failure with tubular necrosis ([facility]);Hyperkalemia, diminished renal excretion;Pleural effusion due to CHF (congestive heart failure) ([facility]) after 08/06/2016 Social History Tobacco Use Types Packs/Day Years Used Date Former Smoker Quit: 06/23/1985 Smokeless Tobacco: Never Used Alcohol Use Drinks/Week oz/Week Comments No Sex Assigned at Date Recorded Not on file Last Filed Vital Signs Vital Sign Reading Time Taken Blood Pressure 123/67 08/13/2016 7:00 PM TECHNICAL SALES MANAGER Pulse 93 08/13/2016 7:00 PM TECHNICAL SALES MANAGER Temperature 36.6 C (97.8 F) 08/13/2016 7:00 PM TECHNICAL SALES MANAGER Respiratory Rate 20 08/13/2016 7:00 PM TECHNICAL SALES MANAGER Oxygen Saturation 98% 08/13/2016 7:00 PM TECHNICAL SALES MANAGER Inhaled Oxygen - - Concentration Weight 90 kg (198 lb 4.9 oz) 08/13/2016 6:00 AM TECHNICAL SALES MANAGER Height 157.2 cm (5' 1.89") 08/07/2016 6:00 PM TECHNICAL SALES MANAGER Body Mass Index 36.4 08/13/2016 6:00 AM TECHNICAL SALES MANAGER Plan of Treatment Not on file Implants Implanted Type Area Surgical Attendant Device Expiration Model / Identifier Date Serial / Lot Mesh Ventralite Blln 8x10in - Mesh N/A: CR BARD:DAVOL 04/19/2018 [id number] / [id number] Abdomen / Implanted: Qty: 1 on 07/29/2016 by [id number] Jackson Rojas MD Results * RHYTHM STRIP - SCAN (08/19/2016 3:33 PM) Only the most recent of 2 results within the time period is included. * EKG-SCANNED (08/15/2016 11:52 AM) * POC-Glucose meter (08/13/2016 4:08 PM) Only the most recent of 30 results within the time period is included. Component Value Ref Range POC-Glucose Meter 186 (H)Comment: TESTED AT [facility] [id number] [facility] 70 - 110 mg/dL [facility] [id number] Specimen Performing Laboratory Blood [address] [address] * CBC with platelet count + automated diff (08/13/2016 4:31 AM) Only the most recent of 8 results within the time period is included. Component Value Ref Range WBC 12.3 (H) 4.0 - 10.0 K/ L RBC 4.06 4.00 - 5.00 M/ L Hemoglobin 9.9 (L) 12.0 - 15.0 GM/DL Hematocrit 31.3 (L) 36.0 - 45.0 % MCV 76.9 (L) 82.0 - 99.0 fL MCH 24.4 (L) 27.0 - 33.0 pg MCHC 31.7 (L) 32.0 - 36.0 GM/DL RDW 21.8 (H) 12.0 - 15.0 % Platelets 431 (H) 150 - 430 K/CU MM MPV 8.4 6.5 - 10.5 fL nRBC 0 0 - 0 /100 WBC % Neutros 53 % % Lymphs 30 % % Monos 8 % % Eos 8 % % Baso 0 % # Neutros 6.50 1.80 - 8.00 K/ L # Lymphs 3.70 1.48 - 4.50 K/ L # Monos 1.00 0.00 - 1.30 K/ L # Eos 1.00 (H) 0.00 - 0.50 K/ L # Baso 0.00 0.00 - 0.20 K/ L Specimen Performing Laboratory Blood [facility] [address] [place] [address] * CBC with platelet count + automated diff (08/13/2016 4:31 AM) Only the most recent of 8 results within the time period is included. Specimen Performing Laboratory Blood Narrative The following orders were created for panel order CBC with platelet count + automated diff. Procedure Abnormality Status --------- - ------ CBC with platelet count ...[[id number]]AbnormalFinal result Please view results for these tests on the individual orders. * XR chest 1 view portable / bedside (08/12/2016 3:44 PM) Only the most recent of 3 results within the time period is included. Specimen Performing Laboratory [facility] Narrative FINAL REPORT TECHNIQUE: Single view of the chest. COMPARISON: 08/10/2016 FINDINGS: The cardiac silhouette is at the upper limits of normal.Thoracic aorta is ectatic with calcifications. Lung volumes are low, grossly clear.No acute skeletal abnormality. Right-sided PICC line noted with tip at the cavoatrial junction. Signed: Jose Arizmendi MD Report Verified Date/Time:08/12/2016 16:49:48 Reading Location: [facility] Radiology Reading Room Procedure Note Interface, External Ris In - 08/12/2016 4:51 PM TECHNICAL SALES MANAGER FINAL REPORT TECHNIQUE: Single view of the chest. COMPARISON: 08/10/2016 FINDINGS: The cardiac silhouette is at the upper limits of normal. Thoracic aorta is ectatic with calcifications. Lung volumes are low, grossly clear. No acute skeletal abnormality. Right-sided PICC line noted with tip at the cavoatrial junction. Signed: Jose Arizmendi MD Report Verified Date/Time: 08/12/2016 16:49:48 Reading Location: [facility] Radiology Reading Room * IR PICC Line Placement (08/12/2016 2:03 PM) Specimen Performing Laboratory [facility] Narrative FINAL REPORT Exam:PICC insertion Clinical History:Need for long-term IV antibiotics Consent:Risks and benefits were explained to the patient who gave consent to the procedure. Complication:Non immediate. Total fluoro time:0.2 minutes Total images 1 Procedure:Sterile barrier technique was followed including cap, mask, sterile gown, sterile gloves, sterile sheet, hand hygiene and 2% chlorhexidine for cutaneous antisepsis.The right arm was prepped and draped in usual sterile fashion.2% lidocaine was used as local anesthetics.Under ultrasound guidance the right basilic vein, which is patent, was accessed using a 21g micropuncture needle.A hard copy of the ultrasound image was obtained.A 4 FR single lumen PICC was inserted through the venotomy site until the tip is at the cavoatrial junction under fluoroscopic guidance.The lumen aspirated and flushed easily.The patient tolerated the procedure well without any adverse reactions and was transferred from the radiology department in stable condition. Impression:Successful PICC insertion as described. Signed: Nita Ayon MD Report Verified Date/Time:08/12/2016 17:28:20 Reading Location: [facility] Radiology Reading Room Procedure Note Interface, External Ris In - 08/12/2016 5:30 PM TECHNICAL SALES MANAGER FINAL REPORT Exam: PICC insertion Clinical History: Need for long-term IV antibiotics Consent: Risks and benefits were explained to the patient who gave consent to the procedure. Complication: Non immediate. Total fluoro time: 0.2 minutes Total images 1 Procedure: Sterile barrier technique was followed including cap, mask, sterile gown, sterile gloves, sterile sheet, hand hygiene and 2% chlorhexidine for cutaneous antisepsis. The right arm was prepped and draped in usual sterile fashion. 2% lidocaine was used as local anesthetics. Under ultrasound guidance the right basilic vein, which is patent, was accessed using a 21g micropuncture needle. A hard copy of the ultrasound image was obtained. A 4 FR single lumen PICC was inserted through the venotomy site until the tip is at the cavoatrial junction under fluoroscopic guidance. The lumen aspirated and flushed easily. The patient tolerated the procedure well without any adverse reactions and was transferred from the radiology department in stable condition. Impression: Successful PICC insertion as described. Signed: Nita Ayon MD Report Verified Date/Time: 08/12/2016 17:28:20 Reading Location: [facility] Radiology Reading Room * Comprehensive metabolic panel (08/11/2016 4:42 AM) Component Value Ref Range Protein, Total 6.5 6.0 - 8.5 gm/dL Albumin 3.2 (L) 3.5 - 5.0 g/dL Alkaline Phosphatase 72 30 - 115 U/L Total Bilirubin 0.3 0.1 - 1.3 mg/dL Sodium 140 135 - 148 meq/L Potassium 4.0 3.5 - 5.5 meq/L Chloride 104 98 - 106 meq/L CO2 26 20 - 31 meq/L BUN 14 10 - 26 mg/dL Creatinine 1.42 (H) 0.50 - 1.20 mg/dL Glucose 174 (H) 70 - 110 mg/dL Calcium 8.8 8.5 - 10.5 mg/dL AST 21 5 - 40 U/L ALT 12 6 - 50 U/L EGFR 35Comment: ESTIMATED GFR IS NOT ACCURATE mL/min/1.73 sq m CREATININE CLEARANCE IN PREDICTING GLOMERULAR FILTRATION RATE. ESTIMATED GFR IS NOT APPLICABLE FOR DIALYSIS PATIENTS. Specimen Performing Laboratory Blood - Arm, Left [facility] [address] [place] [address] * Sputum Culture + Gram Stain (08/10/2016 4:41 PM) Component Value Ref Range Result 2+ Normal respiratory rivka present Gram Stain Result 1+ WBCs Gram Stain Result 2+ epithelial cellsComment: includes columnar epithelial cells Gram Stain Result 2+ budding yeast Gram Stain Result Rare gram positive cocci Specimen Performing Laboratory Sputum - Expectorated [facility] [address] [place] [address] * CT chest without IV contrast (08/10/2016 3:07 PM) Specimen Performing Laboratory [facility] Narrative FINAL REPORT Chest CT without intravenous contrast INDICATION: cough COMPARISON: No prior studies available for comparison. TECHNIQUE: Multiple contiguous transaxial images of the chest were obtained without intravenous contrast. FINDINGS: Lack of intravenous contrast limits evaluation of the parenchymal and vascular organs. There is no pneumothorax. There are small right and trace left pleural effusions with associated atelectasis. There is scattered subsegmental atelectasis and scarring bilaterally. More confluent opacity is seen anterior to the right fissure measuring 2.0 x 1.6 cm possibly representing mild pneumonitis. There is a nodular opacity in the left lung apex measuring 1.2 cm possibly representing focal atelectasis although underlying lung lesion cannot be excluded. The major airways are clear. The visualized portion of the thyroid gland appears unremarkable. Atherosclerotic vascular calcifications are seen. The heart size is enlarged. No pathologically enlarged lymph nodes are seen in the hilar, mediastinal or axillary regions. There is no pericardial effusion. Limited visualization of the upper abdominal structures demonstrate postsurgical changes in the stomach and gallbladder fossa. The osseous structures demonstrate degenerative changes. IMPRESSION: 1. Small right and trace left pleural effusions with atelectasis. 2. Scattered subsegmental atelectasis and scarring bilaterally. More confluent opacity in the right lung possibly representing mild pneumonitis. Nodular opacity in the left lung apex possibly representing focal atelectasis although underlying lung lesion cannot be excluded. Recommend a follow-up examination to confirm resolution. 3. Cardiomegaly. Signed: Candido Greer MD Report Verified Date/Time:08/10/2016 15:19:37 Reading Location: [facility] [id number] Ortho Consult Reading Room Procedure Note Interface, External Ris In - 08/10/2016 3:21 PM TECHNICAL SALES MANAGER FINAL REPORT Chest CT without intravenous contrast INDICATION: cough COMPARISON: No prior studies available for comparison. TECHNIQUE: Multiple contiguous transaxial images of the chest were obtained without intravenous contrast. FINDINGS: Lack of intravenous contrast limits evaluation of the parenchymal and vascular organs. There is no pneumothorax. There are small right and trace left pleural effusions with associated atelectasis. There is scattered subsegmental atelectasis and scarring bilaterally. More confluent opacity is seen anterior to the right fissure measuring 2.0 x 1.6 cm possibly representing mild pneumonitis. There is a nodular opacity in the left lung apex measuring 1.2 cm possibly representing focal atelectasis although underlying lung lesion cannot be excluded. The major airways are clear. The visualized portion of the thyroid gland appears unremarkable. Atherosclerotic vascular calcifications are seen. The heart size is enlarged. No pathologically enlarged lymph nodes are seen in the hilar, mediastinal or axillary regions. There is no pericardial effusion. Limited visualization of the upper abdominal structures demonstrate postsurgical changes in the stomach and gallbladder fossa. The osseous structures demonstrate degenerative changes. IMPRESSION: 1. Small right and trace left pleural effusions with atelectasis. 2. Scattered subsegmental atelectasis and scarring bilaterally. More confluent opacity in the right lung possibly representing mild pneumonitis. Nodular opacity in the left lung apex possibly representing focal atelectasis although underlying lung lesion cannot be excluded. Recommend a follow-up examination to confirm resolution. 3. Cardiomegaly. Signed: Candido Greer MD Report Verified Date/Time: 08/10/2016 15:19:37 Reading Location: [address] Ortho Consult Reading Room * Procalcitonin (08/10/2016 11:16 AM) Component Value Ref Range Procalcitonin 0.15 (H) <0.05 ng/mL Specimen Performing Laboratory [facility] [address] [place] [address] Narrative SEPSIS RISK (ng/mL) Low:0.05-0.50 Intermediate: 0.51-2.00 High: >=2.01 * Blood culture (08/10/2016 11:15 AM) Only the most recent of 2 results within the time period is included. Component Value Ref Range Result No growth in 5 days Specimen Performing Laboratory Blood - Arm, Left [facility] [address] [place] [address] * B-type Natriuretic Factor (BNP) (08/10/2016 4:29 AM) Component Value Ref Range BNP 627 (H) 0 - 100 pg/mL Specimen Performing Laboratory [facility] [address] [place] [id number] * Basic Metabolic Panel (08/10/2016 4:29 AM) Only the most recent of 5 results within the time period is included. Component Value Ref Range Sodium 139 135 - 148 meq/L Potassium 4.2 3.5 - 5.5 meq/L Chloride 103 98 - 106 meq/L CO2 26 20 - 31 meq/L BUN 12 10 - 26 mg/dL Creatinine 1.30 (H) 0.50 - 1.20 mg/dL Glucose 133 (H) 70 - 110 mg/dL Calcium 8.8 8.5 - 10.5 mg/dL EGFR 39Comment: ESTIMATED GFR IS NOT ACCURATE mL/min/1.73 sq m CREATININE CLEARANCE IN PREDICTING GLOMERULAR FILTRATION RATE. ESTIMATED GFR IS NOT APPLICABLE FOR DIALYSIS PATIENTS. Specimen Performing Laboratory [facility] [address] [place] [address] * Phosphorus (08/08/2016 4:48 AM) Only the most recent of 3 results within the time period is included. Component Value Ref Range Phosphorus 1.9 (L) 2.5 - 4.5 mg/dL Specimen Performing Laboratory Blood [facility] [address] [place] [address] * Magnesium (08/08/2016 4:48 AM) Only the most recent of 3 results within the time period is included. Component Value Ref Range Magnesium 1.3 (L) 1.5 - 3.0 mg/dL Specimen Performing Laboratory Blood [facility] [address] [place] [address] * Hemoglobin A1c (08/07/2016 5:03 AM) Component Value Ref Range Hemoglobin A1C 8.4 (H) 4.3 - 6.1 % Specimen Performing Laboratory Blood [facility] [address] [place] [address] after 08/06/2016
[2017-08-07] MEDS ORDERED: DEXTROSE 50% SYRINGE 50 ML IV PRN (05:15)
[2017-08-07] MEDS ORDERED: METHYLPREDNISOLONE SOD SUCC 125 MG/2ML VIAL IV SCH (06:00)
[2017-08-07] MEDS: INSULIN REGULAR, HUMAN 100 UNIT/1 ML 3ML VIAL SQ SCH ×4 (07:30→20:49)
[2017-08-07] MEDS ORDERED: LEVOTHYROXINE SODIUM 75 MCG TAB PO SCH ×2 (07:30→09:00)
[2017-08-07] MEDS ORDERED: FENOFIBRATE 145 MG TAB PO SCH (09:00)
[2017-08-07] MEDS: LISINOPRIL 2.5 MG TAB PO SCH (09:30)
[2017-08-07] MEDS: METOPROLOL SUCCINATE 25 MG TAB XL PO SCH (09:30)
[2017-08-07] MEDS: PANTOPRAZOLE SOD 40 MG TABEC PO SCH (09:30)
[2017-08-07] MEDS: SERTRALINE HCL 50 MG TAB PO SCH (09:30)
[2017-08-07] MEDS: OXYBUTYNIN CHLORIDE 5 MG TAB PO SCH (09:30)
[2017-08-07] MEDS ORDERED: GUAIFENESIN 200 MG/10 ML UDC PO PRN (09:45)
--- NOTE | 2017-08-07 10:26 | History and Physical ---
REASON FOR ADMISSION: Bronchitis. HISTORY OF PRESENT ILLNESS: Patient is an 82-year-old lady who has chronic kidney disease, stage 3 and asthmatic bronchitis. Therefore, she presented to the emergency room by EMS due to nonresponsiveness. She was also found to have an elevated white count of 15,000. She is being admitted for further evaluation and treatment. This has been going on for several weeks with no improvement. PAST MEDICAL HISTORY: Significant for diabetes, chronic kidney disease, stage 3, hypertension, hypothyroidism. MEDICATIONS: See MAR. ALLERGIES: SEE MAR. SOCIAL HISTORY: Lives with her . Nonsmoker and nondrinker. FAMILY HISTORY: Hypertension. PHYSICAL EXAMINATION VITALS: 98.6, blood pressure 146/70, pulse 84, sats 93% on 2 L nasal cannula. GENERAL: She is in no apparent distress lying in bed. NECK: Supple. No lymphadenopathy. CARDIOVASCULAR: Regular rate and rhythm. LUNGS: Bilateral rhonchi. No wheezing noted, but no accessory muscle use is noted at this time. ABDOMEN: Good bowel sounds in all quadrants. EXTREMITIES: No clubbing or cyanosis. NEUROLOGICAL: Nonfocal. ASSESSMENT AND PLAN 1. Asthmatic bronchitis: Continue with nebulizer treatments and intravenous antibiotics, O2 and steroids. Will consult pulmonary. 2. Diabetes: Continue with care and monitoring. 3. Leukocytosis: Continue to monitor. 4. Chronic kidney disease, stage 3: Continue to monitor. 5. Hypertension: . 6. Hypothyroidism: Continue home medications. Please see hospital chart for full details. Job#: [id number] JUVENAL
--- NOTE | 2017-08-07 10:58 | Consultation ---
DATE OF CONSULTATION: August 07, 2017 PULMONARY CONSULTATION Patient of Dr. Mills and Dr. Hager. A charming but unfortunate 82-year-old woman admitted with cough of 4 months duration. She had been seen a month ago at [facility] ER, but declined admission at that time. She had similar complaints. She has been wheezing. She has had a cough productive of brown sputum. She has a history of old myocardial infarction, history of bypass surgery, history of diabetes for over 40 years, history of smoking for over 38 years of a pack a day. Quit 30 years ago. Worked doing [employer], and then a personal [place] [facility]. She was born in [place]. In addition to bypass surgery, she has had hernia repair. FAMILY HISTORY: Positive for breast cancer and coronary disease. ALLERGIES: SULFA, IODINE AND CODEINE. MEDICATIONS: Include vitamin D, etodolac, fenofibrate, Levemir insulin, Levoxyl, lisinopril, metoprolol, oxybutynin, Protonix, ropinirole, potassium, Zoloft, and Restoril. She has had bypass surgery, hernia surgery. She has a history of restless legs. History of arthritis. History of osteoporosis. History of multiple falls. PHYSICAL EXAMINATION GENERAL: She is a well-developed white female looking her stated age. She is eating her breakfast without complaints. VITALS: Temperature 98.2, blood pressure 116/57. HEENT: Head is normocephalic and atraumatic. She is kyphotic. LUNGS: Rales, right greater than left. HEART: Regular rhythm. ABDOMEN: Nontender. EXTREMITIES: Nonedematous. IMPRESSION 1. Pneumonia. 2. Chronic obstructive pulmonary disease. 3. Heart failure. 4. Osteoporosis. 5. Diabetes. 6. Coronary disease. PLAN: Diuresis, antibiotics, bronchodilators. Thank you for this kind referral. Job#: [id number] [place]
[2017-08-07 11:04] LABS: CREATINE KINASE MB 1.6 ng/mL (0.00-5.00)
[2017-08-07] MEDS: FUROSEMIDE INJ 10 MG/ML 2 ML VIAL IV SCH (11:17)
[2017-08-07] MEDS: METHYLPREDNISOLONE SOD SUCC 125 MG/2ML VIAL IV SCH (12:00)
[2017-08-07 18:48] LABS: CREATINE KINASE MB 2.1 ng/mL (0-5.0)
[2017-08-07] MEDS: TEMAZEPAM 15 MG CAP PO SCH (20:47)
[2017-08-07] MEDS: ROPINIROLE HCL 1 MG TAB PO SCH (20:47)
[2017-08-07] MEDS ORDERED: ROPINIROLE HCL 2 MG TAB PO SCH (21:00)
[2017-08-08] VITALS (7 sets, daily range): BP systolic 105–139; BP diastolic 51–78
[2017-08-08] MEDS: CEFTRIAXONE SOD 1 GM VIAL IV SCH (04:59)
[2017-08-08 07:06] LABS: BASOPHILS % 0.1 % (0.0-1.0); HEMATOCRIT 37.5 % (34.2-44.1); HEMOGLOBIN 11.7 g/dL (12.0-16.0); LYMPHOCYTES # (AUTO) 3.6 (1.0-3.2); LYMPHOCYTES % 19.2 % (18.0-39.1); MEAN CORPUSCULAR HEMOGLOBIN 21.6 pg (28-32); MEAN CORPUSCULAR HGB CONC 31.2 g/dL (31-35); MEAN CORPUSCULAR VOLUME 69.2 fL (81-99); MONOCYTES # (AUTO) 1.3 (0.2-0.8); MONOCYTES % 6.8 % (4.4-11.3); NEUTROPHILS # (AUTO) 13.8 (2.1-6.9); NEUTROPHILS % 73.3 % (38.7-80.0); PLATELET COUNT 443 x10e3/uL (140-360); RED BLOOD COUNT 5.42 x10e6/uL (3.6-5.1); RED CELL DISTRIBUTION WIDTH 20.3 % (11.7-14.4)
[2017-08-08] MEDS: FAMOTIDINE 20 MG/2 ML VIAL IV SCH ×2 (07:07→17:27)
[2017-08-08] MEDS: LEVOTHYROXINE SODIUM 125 MCG TAB PO SCH (07:07)
[2017-08-08] MEDS: INSULIN REGULAR, HUMAN 100 UNIT/1 ML 3ML VIAL SQ SCH ×4 (07:30→21:28)
[2017-08-08 07:47] LABS: ALBUMIN 3.4 g/dL (3.5-5.0); ALBUMIN/GLOBULIN RATIO 0.9 (0.8-2.0); ANION GAP 13.2 mmol/L (8-16); CALCIUM 9.3 mg/dL (8.4-10.2); CREATININE, SERUM 1.2 mg/dL (0.57-1.11); POTASSIUM 4.2 mmol/L (3.5-5.1)
[2017-08-08] MEDS: FUROSEMIDE INJ 10 MG/ML 2 ML VIAL IV SCH (09:44)
[2017-08-08] MEDS: METHYLPREDNISOLONE SOD SUCC 125 MG/2ML VIAL IV SCH (09:44)
[2017-08-08] MEDS: PANTOPRAZOLE SOD 40 MG TABEC PO SCH (09:44)
[2017-08-08] MEDS: AZITHROMYCIN 500MG/NS 250 ML 250 ML IV SCH (09:44)
[2017-08-08] MEDS: LISINOPRIL 2.5 MG TAB PO SCH (09:44)
[2017-08-08] MEDS: FENOFIBRATE 145 MG TAB PO SCH (09:45)
[2017-08-08] MEDS: OXYBUTYNIN CHLORIDE 5 MG TAB PO SCH (09:45)
[2017-08-08] MEDS: SERTRALINE HCL 50 MG TAB PO SCH (09:45)
[2017-08-08] MEDS: METOPROLOL SUCCINATE 25 MG TAB XL PO SCH (09:45)
[2017-08-08] MEDS ORDERED: ACETAMINOPHEN 325 MG TAB PO PRN (12:15)
[2017-08-08 12:18] LABS: BILIRUBIN,URINE NEGATIVE (NEGATIVE); KETONES,URINE NEGATIVE (NEGATIVE); LEUKOCYTE ESTERASE ,URINE NEGATIVE (NEGATIVE); NITRITE,URINE NEGATIVE (NEGATIVE); PROTEIN,URINE DIPSTICK NEGATIVE (NEGATIVE); URINE UROBILINOGEN 0.2 mg/dL (0.2 - 1)
[2017-08-08 12:24] LABS: CLARITY,URINE CLEAR (CLEAR); COLOR,URINE YELLOW (YELLOW)
[2017-08-08] MEDS: TEMAZEPAM 15 MG CAP PO SCH (21:27)
[2017-08-08] MEDS: ROPINIROLE HCL 1 MG TAB PO SCH (21:27)
[2017-08-09] VITALS: BP 142/71
[2017-08-09] MEDS: CEFTRIAXONE SOD 1 GM VIAL IV SCH (03:35)
[2017-08-09 04:00] VITALS: BP 106/47
[2017-08-09] MEDS: LEVOTHYROXINE SODIUM 125 MCG TAB PO SCH (06:11)
[2017-08-09] MEDS: FAMOTIDINE 20 MG/2 ML VIAL IV SCH ×2 (06:11→17:31)
[2017-08-09] MEDS: IPRATROPIUM BROMIDE 0.02% 2.5 ML NEB NEB SCH ×5 (07:22→22:25)
[2017-08-09] MEDS: ALBUTEROL SULF 0.083% NEB SOLN 3 ML NEB NEB SCH ×5 (07:22→22:25)
[2017-08-09] MEDS: INSULIN REGULAR, HUMAN 100 UNIT/1 ML 3ML VIAL SQ SCH ×4 (07:30→21:30)
[2017-08-09 07:50] VITALS: BP 109/55
[2017-08-09] MEDS: OXYBUTYNIN CHLORIDE 5 MG TAB PO SCH (08:56)
[2017-08-09] MEDS: AZITHROMYCIN 500MG/NS 250 ML 250 ML IV SCH (08:56)
[2017-08-09] MEDS: FUROSEMIDE INJ 10 MG/ML 2 ML VIAL IV SCH (08:56)
[2017-08-09] MEDS: PREDNISONE 20 MG TAB PO SCH (08:57)
[2017-08-09] MEDS: SERTRALINE HCL 50 MG TAB PO SCH (08:57)
[2017-08-09] MEDS: PANTOPRAZOLE SOD 40 MG TABEC PO SCH (08:57)
[2017-08-09] MEDS: FENOFIBRATE 145 MG TAB PO SCH (08:57)
[2017-08-09] MEDS ORDERED: PREDNISONE 20 MG TAB PO SCH (09:00)
[2017-08-09 11:36] VITALS: BP 142/70
[2017-08-09] MEDS: METOPROLOL SUCCINATE 25 MG TAB XL PO SCH (12:28)
[2017-08-09] MEDS: LISINOPRIL 2.5 MG TAB PO SCH (12:28)
[2017-08-09 16:04] VITALS: BP 139/78
[2017-08-09 20:00] VITALS: BP 148/68
[2017-08-09] MEDS: TEMAZEPAM 15 MG CAP PO SCH (21:30)
[2017-08-09] MEDS: ROPINIROLE HCL 1 MG TAB PO SCH (21:30)
[2017-08-10] VITALS: BP 160/68
[2017-08-10 00:10] VITALS: BP 160/68
[2017-08-10] MEDS: ALBUTEROL SULF 0.083% NEB SOLN 3 ML NEB NEB SCH ×2 (02:15→06:48)
[2017-08-10] MEDS: IPRATROPIUM BROMIDE 0.02% 2.5 ML NEB NEB SCH ×2 (02:15→06:48)
[2017-08-10 04:00] VITALS: BP 136/70
[2017-08-10] MEDS: FAMOTIDINE 20 MG/2 ML VIAL IV SCH (04:58)
[2017-08-10] MEDS: CEFTRIAXONE SOD 1 GM VIAL IV SCH (04:58)
[2017-08-10] MEDS: LEVOTHYROXINE SODIUM 125 MCG TAB PO SCH (05:56)
[2017-08-10] MEDS: INSULIN REGULAR, HUMAN 100 UNIT/1 ML 3ML VIAL SQ SCH (07:30)
[2017-08-10] MEDS ORDERED: PREDNISONE10 MG PO (07:33)
[2017-08-10] MEDS ORDERED: PROAIR HFA INH8.5 GM INH (07:34)
[2017-08-10] MEDS ORDERED: zpack (07:35)
[2017-08-10 07:58] LABS: BASOPHILS % 0.1 % (0.0-1.0); EOSINOPHILS % 0.1 % (0.0-6.0); HEMATOCRIT 35.7 % (34.2-44.1); LYMPHOCYTES # (AUTO) 3.6 (1.0-3.2); LYMPHOCYTES % 26.8 % (18.0-39.1); MEAN CORPUSCULAR HEMOGLOBIN 21.6 pg (28-32); MEAN CORPUSCULAR HGB CONC 30.8 g/dL (31-35); MONOCYTES % 7.1 % (4.4-11.3); NEUTROPHILS # (AUTO) 8.7 (2.1-6.9); NEUTROPHILS % 65.2 % (38.7-80.0); PLATELET COUNT 354 x10e3/uL (140-360); RED CELL DISTRIBUTION WIDTH 20.7 % (11.7-14.4)
[2017-08-10 08:26] LABS: ANION GAP 10.9 mmol/L (8-16); CALCIUM 8.8 mg/dL (8.4-10.2); CREATININE, SERUM 0.98 mg/dL (0.57-1.11); POTASSIUM 3.9 mmol/L (3.5-5.1)
[2017-08-10 08:48] VITALS: BP 107/54
[2017-08-10 08:50] VITALS: BP 107/54
[2017-08-10] MEDS: METOPROLOL SUCCINATE 25 MG TAB XL PO SCH (08:53)
[2017-08-10] MEDS: PREDNISONE 20 MG TAB PO SCH (08:53)
[2017-08-10] MEDS: PANTOPRAZOLE SOD 40 MG TABEC PO SCH (08:53)
[2017-08-10] MEDS: OXYBUTYNIN CHLORIDE 5 MG TAB PO SCH (08:53)
[2017-08-10] MEDS: LISINOPRIL 2.5 MG TAB PO SCH (08:53)
[2017-08-10] MEDS: FUROSEMIDE INJ 10 MG/ML 2 ML VIAL IV SCH (08:53)
[2017-08-10] MEDS: FENOFIBRATE 145 MG TAB PO SCH (08:54)
[2017-08-10] MEDS: SERTRALINE HCL 50 MG TAB PO SCH (08:54)
== END 2017-08-10 09:17 | disposition home or self-care (01) | DRG 193 ==
LOC: ER 01:23 → MED/SURG3 05:05
PROVIDERS: ADMIT Internal Medicine; ATTEND Internal Medicine
DX: J18.9 Pneumonia, unspecified organism (principal); I50.33 Acute on chronic diastolic (congestive) heart failure; J44.0 Chronic obstructive pulmonary disease with (acute) lower respiratory infection; E11.22 Type 2 diabetes mellitus with diabetic chronic kidney disease; I13.0 Hypertensive heart and chronic kidney disease with heart failure and stage 1 through stage 4 chronic kidney disease, or unspecified chronic kidney disease; J20.9 Acute bronchitis, unspecified; N18.3 Chronic kidney disease, stage 3 (moderate); R00.1 Bradycardia, unspecified; I25.2 Old myocardial infarction; M81.0 Age-related osteoporosis without current pathological fracture; I25.10 Atherosclerotic heart disease of native coronary artery without angina pectoris; G47.00 Insomnia, unspecified; E03.9 Hypothyroidism, unspecified; Z95.1 Presence of aortocoronary bypass graft; Z88.2 Allergy status to sulfonamides; Z87.891 Personal history of nicotine dependence; Z79.4 Long term (current) use of insulin
CPT/HCPCS: 36415; 71046; 80048; 80053; 80061; 81001; 82550; 82553; 82948; 83605; 83735; 83880; 84484; 85025; 85610; 85730; 87040; 87086; 93005; 93306; 94640; 99284; J0456; J0696; J1940; J2930

== ENCOUNTER 2018-07-06 12:39 | Emergency (ER) | payer MEDICARE, OTHER ==
[~2018-07-06] VITALS: Ht 157.5 cm; Wt 77.1 kg
[~2018-07-06 12:39] MED LIST: ETODOLAC300 MG PO; FENOFIBRATE145 MG PO; FISH OIL 1,0001 EAC3 PO; KLOR-CON 1010 MEQ PO; LEVEMIR100 UNIT/1; LEVOTHYROXINE75 MCG PO; LISINOPRIL2.5 MG PO; METOPROLOL SUCC25 MG PO; OMEGA-3100 MG PO; OXYBUTYNIN CHLOR5 MG PO; PANTOPRAZOLE SO40 MG PO; PREDNISONE10 MG PO; PROAIR HFA INH8.5 GM INH; SERTRALINE HCL50 MG PO; TEMAZEPAM15 MG PO; VITAMIN D31000 UNI1 PO; [UNRECOGNIZED DRUG - OTHER] PO; zpack
--- OUTSIDE RECORDS SUMMARY | 2018-07-06 12:42 | XMS REPORT | Clinical Summary ---
Author Author JOHN [employer] [employer] [facility] Address Unknown Phone Unavailable Care Team Providers Care Kiln Repairer Name Role Phone Jamari Rico MD PCP Allergies Comments Active Allergy Reactions Severity Noted Date HEADACHE Codeine Other (See 06/13/2016 Comments) Iodine And Iodide Rash Low 06/13/2016 Containing Products Sulfa (Sulfonamide Rash Low 06/13/2016 Antibiotics) Medications End Date Status Medication Sig Dispensed Refills Start Date Active potassium chloride Take 10 mEq 0 (KLOR-CON) 10 MEQ CR by mouth 2 tablet (two) times daily . Active sertraline (ZOLOFT) 50 MG Take 50 mg by 0 tablet mouth daily. Active fenofibrate Take 160 mg 0 (TRIGLIDE,LOFIBRA) 160 MG by mouth tablet daily. Active lisinopril Take 2.5 mg 0 (PRINIVIL,ZESTRIL) 2.5 MG by mouth tablet daily. Active etodolac (LODINE) 300 MG Take 300 mg 0 capsule by mouth 2 (two) times daily . Active metoprolol (LOPRESSOR) 25 Take 25 mg by 0 MG tablet mouth 2 (two) times daily. Active rOPINIRole (REQUIP) 1 MG Take 1 mg by 0 tablet mouth nightly. Active temazepam (RESTORIL) 30 Take 30 mg by 0 mg capsule mouth every night as needed for Sleep. Active oxybutynin (DITROPAN) 5 Take 5 mg by 0 MG tablet mouth daily . Active pantoprazole (PROTONIX) Take 40 mg by 0 40 MG tablet mouth daily. Active levothyroxine (SYNTHROID, Take 125 mcg 0 LEVOTHROID) 125 MCG by mouth tablet Every morning on an empty stomach. Active omega-3 acid ethyl esters Take 2 g by 0 (LOVAZA) 1 gram capsule mouth 2 (two) times daily. Active multivitamin Take 1 tablet 0 (MULTIVITAMIN) per tablet by mouth daily. Active cholecalciferol (VITAMIN Take 1,000 0 D3) 1,000 unit tablet Units by mouth daily. Active b complex vitamins tablet Take 1 tablet 0 by mouth daily. Active COLLAGEN MISC Take 1 0 capsule by mouth 2 (two) times daily. Active insulin detemir (LEVEMIR) Inject 15 0 100 unit/mL (3 mL) InPn Units injection subcutaneousl y nightly . Active sacubitril-valsartan Take 1 tablet 0 (ENTRESTO) 24-26 mg Tab by mouth 2 (two) times daily. Active furosemide (LASIX) 40 MG Take 20 mg by 0 tablet mouth 2 (two) times daily . Active spironolactone Take 12.5 mg 0 (ALDACTONE) 25 MG tablet by mouth daily . Active piperacillin-tazobactam Inject 2.25 g 0 (ZOSYN) 2.25 g in sodium intravenously 7 chloride 0.9 % (NS) 100 every 6 (six) mL ADD EASE IVPB hours. Active potassium, sodium Take 2 0 phosphates (PHOS-NAK) packets by 7 280-160-250 mg PwPk mouth 3 packet (three) times daily with meals. Active heparin injection 5,000 Inject 1 mL 1 mL 0 units/mL for DVT (5,000 Units 7 prophylaxis/dialysis total) lock/IV bolus subcutaneousl y every 8 (eight) hours. Active meropenem (MERREM) 1 g in Inject 1 g 0 sodium chloride 0.9% (NS) intravenously 7 100 mL ADD EASE IVPB every 8 (eight) hours. 08/08/2017 insulin lispro (HUMALOG) Inject 0-4 10 mL 0 100 unit/mL injection Units 7 subcutaneousl y every night as needed (High blood sugar). 08/08/2017 insulin lispro (HUMALOG) Inject 0-12 10 mL 0 100 unit/mL injection Units 7 subcutaneousl y as needed (High blood sugar). 08/08/2017 insulin detemir (LEVEMIR) Inject 15 10 mL 0 100 unit/mL injection Units 7 subcutaneousl y nightly. 08/03/2017 acetaminophen (TYLENOL) Take 2 30 tablet 0 325 MG tablet tablets (650 7 mg total) by mouth every 4 (four) hours as needed for Fever (greater than 100.4F) for up to 360 days. Active Problems Problem Noted Date Postoperative hypovolemic shock, initial encounter 07/31/2016 Junctional cardiac arrhythmia 07/31/2016 Leukocytosis 07/31/2016 Acute kidney failure 07/31/2016 Hyperkalemia, diminished renal excretion 07/31/2016 Pleural effusion due to CHF (congestive heart failure) 07/31/2016 Recurrent ventral incisional hernia 07/29/2016 Social History Date Tobacco Use Types Packs/Day Years Used Quit: 06/23/1985 Former Smoker Smokeless Tobacco: Never Used Alcohol Use Drinks/Week oz/Week Comments No Sex Assigned at Date Recorded Not on file Industry Job Start Date Occupation Not on file Not on file Not on file Travel End Travel History Travel Start No recent travel history available. Last Filed Vital Signs Not on file Plan of Treatment Not on file Implants Device Identifier Shelf Expiration Date Model / Serial / Lot Implanted Type Area Manufactur er 04/19/2018 [id number] / / [id number] Mesh Ventralite Blln 8x10in - Mesh N/A: Abdomen CR [id number] BARD:DAVOL Implanted: Qty: 1 on 07/29/2016 by Jackson Rojas MD Results Not on fileafter 07/05/2017 Insurance Payer Benefit Subscriber ID Type Phone Address Plan / Group AETNA - MEDICARE MGD CARE AETNA xxxxxxxx [facility] [phone] [address] [place] [address] [facility] [place] Advance Directives For more information, please contact: [facility] [address] [place] [address] Date Inactivated Comments Code Status Date Activated 08/13/2016 10:09 PM Full Code 07/29/2016 4:36 PM This code status was determined by: Patient
[2018-07-06] MEDS ORDERED: SODIUM CHLORIDE 0.9% 1000ML 1,000 ML IV STA (12:49)
[2018-07-06] MEDS ORDERED: ACETAMINOPHEN 325 MG TAB PO ONE (13:15)
[2018-07-06 13:16] LABS: BASOPHILS # (AUTO) 0.1 (0.0-0.1); BASOPHILS % 0.5 % (0.0-1.0); EOSINOPHILS # (AUTO) 0.2 (0.0-0.4); EOSINOPHILS % 1.8 % (0.0-6.0); HEMATOCRIT 40.6 % (34.2-44.1); HEMOGLOBIN 12.7 g/dL (12.0-16.0); LYMPHOCYTES # (AUTO) 2.5 (1.0-3.2); LYMPHOCYTES % 25.4 % (18.0-39.1); MEAN CORPUSCULAR HEMOGLOBIN 23.6 pg (28-32); MEAN CORPUSCULAR HGB CONC 31.3 g/dL (31-35); MEAN CORPUSCULAR VOLUME 75.5 fL (81-99); MONOCYTES # (AUTO) 0.6 (0.2-0.8); MONOCYTES % 6.6 % (4.4-11.3); NEUTROPHILS # (AUTO) 6.4 (2.1-6.9); NEUTROPHILS % 65.5 % (38.7-80.0); PLATELET COUNT 271 x10e3/uL (140-360); RED BLOOD COUNT 5.38 x10e6/uL (3.6-5.1); RED CELL DISTRIBUTION WIDTH 19.9 % (11.7-14.4)
[2018-07-06 14:03] LABS: ANION GAP 15.8 mmol/L (8-16); CALCIUM 9.4 mg/dL (8.4-10.2); CREATININE, SERUM 1.14 mg/dL (0.57-1.11); POTASSIUM 3.8 mmol/L (3.5-5.1)
[2018-07-06 14:10] LABS: CREATINE KINASE MB 0.8 ng/mL (0-5.0)
--- NOTE | 2018-07-06 16:27 | NUR ---
PT RESTING MORE AWAKE AND DECREASE COUGH; SARIAH WITH PT; SAYS SHE IS DIABETIC AND HUNGRY; DR BROWNE AWARE AND ORDERES ADA DIET; BLOOD GLUCOSE 112 BY FINGER STICK.
--- NOTE | 2018-07-06 16:33 | Diagnostic Imaging Report ---
EXAMINATION: CHEST 2 VIEWS INDICATION: Shortness of breath; cough, diminished breath sounds at right base. COMPARISON: Chest radiograph 08/07/2017 FINDINGS: TUBES and LINES: None. LUNGS: Lungs are well inflated. Mild patchy bibasilar opacities. No evidence of pulmonary edema. PLEURA: No pleural effusion or pneumothorax. HEART AND MEDIASTINUM: The cardiomediastinal silhouette is unchanged. Postsurgical changes are present. Atherosclerotic calcifications of the aortic arch. BONES AND SOFT TISSUES: No acute osseous lesion. Soft tissues are unremarkable. UPPER ABDOMEN: No free air under the diaphragm. IMPRESSION: Mild patchy bibasilar opacities, which could reflect atelectasis or early pneumonia in the appropriate clinical setting. No evidence of lobar consolidation. Signed by: Dr. Oscar Samayoa MD on 07/06/2018 2:35 PM
--- NOTE | 2018-07-06 16:48 | NUR ---
RT notified of need for neb treatment.
[2018-07-06 16:57] VITALS: BP 139/63
[2018-07-06] MEDS ORDERED: CEFTRIAXONE SOD 1 GM/NS 50 ML 50 ML IV ONE (17:00)
[2018-07-06] MEDS ORDERED: ALBUTEROL/IPRATROPIUM 3 ML NEB NEB ONE (17:00)
[2018-07-06] MEDS ORDERED: LEVAQUIN500 MG PO (17:06)
[2018-07-06] MEDS ORDERED: PROAIR HFA INH8.5 GM PO (17:06)
== END 2018-07-06 18:00 | disposition home or self-care (01) ==
LOC: ER 12:39
DX: R06.09 Other forms of dyspnea (principal); R05 Cough; R50.9 Fever, unspecified; J15.9 Unspecified bacterial pneumonia; I10 Essential (primary) hypertension; E11.9 Type 2 diabetes mellitus without complications; I25.10 Atherosclerotic heart disease of native coronary artery without angina pectoris
CPT/HCPCS: 36415; 71046; 80048; 82550; 82553; 82948; 84484; 85025; 87040; 87400; 99284; J0696; J7030

== ENCOUNTER 2018-07-14 11:02 | Emergency (ER) | payer MEDICARE ==
[~2018-07-14] VITALS: Ht 157.5 cm; Wt 77.1 kg
[~2018-07-14 11:02] MED LIST changes: +LEVAQUIN500 MG PO; +PROAIR HFA INH8.5 GM PO
--- OUTSIDE RECORDS SUMMARY | 2018-07-14 11:06 | XMS REPORT | Clinical Summary ---
Author Author JOHN [employer] [facility] [employer] [facility] Address Unknown Phone Unavailable Care Team Providers Care Legal Researcher Name Role Phone Jamari Rico MD PCP [...] Lot Implanted Type Area Manufactur er 04/19/2018 [id number] / / [id number] Mesh Ventralite Blln 8x10in - Mesh N/A: Abdomen CR [id number] BARD:DAVOL Implanted: Qty: 1 on 07/29/2016 by Jackson Rojas MD Results Not on fileafter 07/13/2017 Insurance Payer Benefit Subscriber ID Type Phone Address Plan / Group AETNA - MEDICARE MGD CARE AETNA xxxxxxxx [facility] [phone] [address] [place] [address] [facility] [place] POS Advance Directives For more information, please contact: [facility] [address] [place] [address] Date Inactivated Comments Code Status Date Activated 08/13/2016 10:09 PM Full Code 07/29/2016 4:36 PM This code status was determined by: Patient
[2018-07-14] MEDS ORDERED: TRAMADOL HCL 50 MG TAB PO ONE (11:30)
--- NOTE | 2018-07-14 12:42 | Diagnostic Imaging Report ---
EXAMINATION: Head CT HISTORY: Status post fall, head trauma, head pain COMPARISON: None. TECHNIQUE: Multidetector axial images were obtained without contrast from the foramen magnum to the vertex . The images were reconstructed using brain and bone algorithms. Thin section brain images were reformatted into coronal and sagittal planes. Image quality: Motion/streaking artifact limits the evaluation of the skull base and posterior cranial fossa. Dose modulation, iterative reconstruction, and/or weight based adjustment of the mA/kV was utilized to reduce the radiation dose to as low as reasonably achievable. FINDINGS: Parenchyma: 1. Severe confluent periventricular, moulton radiata and centrum semiovale white matter hypodensities, most likely nonspecific chronic microvascular ischemic changes. Small age indeterminate, likely chronic lacunar infarcts in the right lentiform nucleus, right thalamus, anterior limb of the internal capsules and posterior limb of the right internal capsule. 2. No mass or hemorrhage. No CT evidence of acute territorial vascular insult. Extra-axial spaces:No abnormal density. No extra-axial fluid collections Brain volume: Normal for age. Ventricles: Mild ventriculomegaly, that is slightly out of proportion to the size of the cortical sulci, thinning and upward displacement of the corpus callosum, with relative partial effacement of the vertex region sulci. Some degree of normal pressure hydrocephalus cannot be excluded in the appropriate clinical setting. Arteries: No density suggestive of thrombus. Dural sinuses: No abnormal density. Extra-axial spaces: No abnormal density. Foramen magnum: No mass, Chiari malformation, or basilar invagination. Sella: No obvious mass. Paranasal/mastoid sinuses: Partial opacification with air-fluid level of the right maxillary sinus, without discrete displaced facial fracture, which may be related to chronic inspiratory process. Skull/Scalp: No lytic or blastic lesions. Large bilateral parietal vertex region scalp hematoma without underlying fractures.. IMPRESSION: 1. No acute post traumatic intracranial hemorrhage. 2. Large parietal scalp hematoma without underlying fractures. 3. Severe confluent white matter chronic microvascular ischemic changes. 4. Ventriculomegaly as detailed above. Signed by: Dr. Kathleen Bernabe M.D. on 07/14/2018 12:39 PM
--- NOTE | 2018-07-14 12:48 | Diagnostic Imaging Report ---
EXAMINATION: CT of the cervical spine HISTORY: Status post fall, head trauma, neck pain COMPARISON: None available TECHNIQUE: Multidetector helical axial images were obtained without contrast from the foramen magnum to T1. The images were reconstructed using bone and soft tissue algorithms and were viewed in axial, sagittal and coronal planes. Dose modulation, iterative reconstruction, and/or weight based adjustment of the mA/kV was utilized to reduce the radiation dose to as low as reasonably achievable. FINDINGS: Alignment: Normal alignment and lordosis Soft tissues: Normal Vertebrae: Normal height and density. No acute fracture, infection or neoplasm. Minimal chronic anterior wedging of the T1 vertebral body. Chronic endplate degenerative changes from C4 to T1. Degenerative changes: C1-C2: Normal C2-C3: Mild facet arthrosis without stenoses C3-C4: Normal C4-C5: Disc osteophyte complex formation, bilateral uncovertebral and facet arthrosis. Mild right and moderate left foraminal stenosis. Mild canal stenosis. C5-C6: Disc osteophyte complex formation, bilateral uncovertebral and facet arthrosis. Mild spinal canal stenosis. Moderate foraminal stenosis bilaterally. C6-C7: Disc osteophyte complex formation, mild facet arthrosis. No significant canal or foraminal stenosis. C7-T1: Normal Incidental findings: Partial opacification of the right maxillary sinus as well as mucosal thickening of the partially visualized left maxillary and bilateral sphenoid sinuses. This may be related to chronic inflammatory process. IMPRESSION: 1. No acute cervical spine postraumatic abnormalities. 2. Chronic degenerative changes as detailed above. Note: Acute postraumatic spinal cord, vascular or ligamentous injuries cannot adequately be assessed by CT. Signed by: Dr. Kathleen Bernabe M.D. on 07/14/2018 12:44 PM
== END 2018-07-14 17:00 | disposition left against medical advice (07) ==
LOC: ER 11:02
DX: S00.83XA Contusion of other part of head, initial encounter (principal); M54.2 Cervicalgia; R51 Headache; R53.1 Weakness; W01.0XXA Fall on same level from slipping, tripping and stumbling without subsequent striking against object, initial encounter; Y92.488 Other paved roadways as the place of occurrence of the external cause
CPT/HCPCS: 70450; 72125; 99284

== ENCOUNTER 2020-02-09 12:00 | Inpatient (IN) | payer MEDICARE, OTHER ==
[~2020-02-09] VITALS: Ht 152.4 cm; Wt 73.5 kg
--- NOTE | 2020-02-09 12:15 | Emergency Department Note ---
History of Present Illnes History of Present Illness Chief Complaint: General Medicine Complaints History of Present Illness This is a 84 year old female Chief Complaint Comment FROM DR HOWARD. CALLED FOR AMS AOX1. FEVER 103.4. DX WITH SHINGLES. UNK COVID STATUS. Historian: Business Intelligence Administrator/EMS Arrival Mode: [facility] EMS Treatment OIL RECOVERY OPERATOR: See EMS Report Phys Assistant Required: No Past Medical/Family History Physician Review I have reviewed the patient's past medical and family history. Any updates have been documented here. Past Medical History Recent Fever: Yes Clinical Suspicion of Infectio: Yes New/Unexplained Change in Ment: Yes Past Medical History: Hypertension, Diabetes, Hypothyroidism, CAD, Depression, GERD, Hyperlipedemia Other Surgery: 2000 TRIPLE BYPASS HERNIA REPAIR X3 Other Last Tetanus: UNK Physical Exam Related Data Allergies: Coded Allergies: codeine (Verified Allergy, Severe, 08/07/17) iodine (Verified Allergy, Severe, 08/07/17) Sulfa (Sulfonamide Antibiotics) (Verified Allergy, Intermediate, 07/06/18) Triage Vital Signs Vital Signs Date Time Temp Pulse Resp B/P (MAP) Pulse Ox O2 Delivery O2 Flow Rate FiO2 02/09/20 12:05 103.4 02/09/20 12:09 100 12 100 Nasal Cannula 4.0 Physical Exam CONSTITUTIONAL HENT EYES NECK PULMONARY CARDIOVASCULAR GASTROINTESTINAL GENITOURINARY SKIN MUSCULOSKELETAL NEUROLOGICAL PSYCHOLOGICAL Assessment & Plan Medical Decision Making MDM 84-year-old female presents for altered mental status and fever and hypoxia. Patient is alert and oriented to self and place. She is hypoxic on room air to the upper 80s. She is placed on 2 L nasal cannula with saturation of 100%. She is febrile. Zosyn started for pneumonia and she'll be admitted to Dr. Mills. Patient is appropriate for transfer to the floor. Sepsis suspected at time of antibiotic order. Lactic acid was repeated if initial >2 30cc/kg crystalloid bolus not indicated Vasopressors were not indicated Reassessment Reassessment time: 14:10 Reassessment NAD, VSS Assessment & Plan Final Impression: (1) Pneumonia Depart Disposition: ADMITTED Last Vital Signs Date Time Temp Pulse Resp B/P (MAP) Pulse Ox O2 Delivery O2 Flow Rate FiO2 02/09/20 12:09 100 12 146/80 100 Nasal Cannula 4.0 02/09/20 12:05 103.4 Home Meds Reported Medications Albuterol Sulf* (PROAIR HFA INHALER*) 8.5 Gm Inh, 2 PO 07/06/18 Levofloxacin (LEVAQUIN) 500 Mg Tablet, 500 MG PO DAILY, TAB 07/06/18 [zpack] No Conflict Check 08/10/17 Albuterol Sulf* (PROAIR HFA INHALER*) 8.5 Gm Inh, 2 INH INH Q6H PRN for SHORTNESS OF BREATH 08/10/17 Prednisone (PREDNISONE) 10 Mg Tab, 10 MG PO DAILY for 5 Days, TAB 08/10/17 [place]-3 Fatty Acids/Fish Oil (FISH OIL 1,000 MG SOFTGEL) 1 Each Capsule, 1 CAP PO BID 08/07/17 Cholecalciferol (Vitamin D3) (VITAMIN D3) 1,000 Unit Tablet, 1 TAB PO DAILY 08/07/17 [place]-3 Fatty Acids (OMEGA-3) 100 Mg Tab.chew, 1 TAB PO DAILY 08/07/17 Insulin Detemir (LEVEMIR) 100 Unit/1 Ml Vial 08/07/17 Levothyroxine Sodium (LEVOTHYROXINE SODIUM) 75 Mcg Tablet, 125 MCG PO DAILY, #30 TAB 08/07/17 Pantoprazole Sodium* (PROTONIX) 40 Mg Tablet.dr, 40 MG PO DAILY, TAB 08/07/17 Oxybutynin Chloride (OXYBUTYNIN CHLORIDE) 5 Mg Tablet, 5 MG PO DAILY, #30 TAB 08/07/17 Temazepam (TEMAZEPAM) 15 Mg Capsule, 30 MG PO HS 08/07/17 [Opinirole] No Conflict Check, 1 MG PO HS 08/07/17 Metoprolol Succinate (METOPROLOL SUCCINATE) 25 Mg Tab.er.24h, 1 TAB PO DAILY 08/07/17 Etodolac (ETODOLAC) 300 Mg Capsule, 1 CAP PO BID THERAPEUTICALLY SUBSTITUTED WITH IBUPROFEN 600MG 08/07/17 Lisinopril (LISINOPRIL) 2.5 Mg Tablet, 2.5 MG PO DAILY, #30 TAB 08/07/17 Fenofibrate Nanocrystallized (FENOFIBRATE) 145 Mg Tablet, 160 MG PO DAILY 08/07/17 Sertraline Hcl (SERTRALINE HCL) 50 Mg Tablet, 50 MG PO DAILY, #30 TAB 08/07/17 Potassium Chloride (KLOR-CON 10) 10 Meq Tablet.er, 1 TAB PO BID 08/07/17 MERISSA MCFADDEN MD Feb 09, 2020 12:14
[2020-02-09] MEDS ORDERED: ACETAMINOPHEN 325 MG TAB PO STA (12:20)
[2020-02-09 12:57] LABS: BASOPHILS # (AUTO) 0.1 (0.0-0.1); BASOPHILS % 0.3 % (0.0-1.0); EOSINOPHILS % 0.1 % (0.0-6.0); HEMATOCRIT 41.3 % (34.2-44.1); HEMOGLOBIN 12.9 g/dL (12.0-16.0); LYMPHOCYTES # (AUTO) 2.7 (1.0-3.2); MEAN CORPUSCULAR HEMOGLOBIN 25.7 pg (28-32); MEAN CORPUSCULAR HGB CONC 31.2 g/dL (31-35); MEAN CORPUSCULAR VOLUME 82.3 fL (81-99); MONOCYTES # (AUTO) 1.1 (0.2-0.8); NEUTROPHILS # (AUTO) 11.9 (2.1-6.9); NEUTROPHILS % 75.1 % (38.7-80.0); PLATELET COUNT 338 x10e3/uL (140-360); RED BLOOD COUNT 5.02 x10e6/uL (3.6-5.1)
--- OUTSIDE RECORDS SUMMARY | 2020-02-09 13:14 | XMS REPORT ---
Author Karen Harvey Organization [employer] Address Unknown Phone Unavailable Care Team Providers Care Charging Car Operator Name Role Phone Pura Pavon Unavailable Allergies, Adverse Reactions, Alerts Substance Reaction Event Type Sulfa Drugs Info Not Available Drug Allergy Iodine Info Not Available Drug Allergy codeine Info Not Available Drug Allergy Encounters Encounter Location Date low [facility] Jul 17, 2016 Problems Problem Type Condition ICD-9 Code Onset Dates Condition Statu s Assessment Atherosclerotic heart diseas e of [place] coronary artery without angina pectoris I25.10 Active Assessment Essential (primary) hypertension I10 Active Assessment Chronic systolic (congestive) heart failure I50.22 Active Assessment Encounter for preprocedural cardiovascular examination Z01.810 Active Medications Medication Code System Code Instructions Start Date End Date Status Dosage furosemide MULTUM 34434 40 mg orally once a day Activ e 1 tab(s) Levemir InnoLet MULTUM 65969 100 units/mL subcutaneously Active 0 Metoprolol Succinate ER MULTUM 84610 25 mg orally once a day Active 1 tab(s) fenofibrate MULTUM 89386 160 mg orally once a day Act filiberto 1 tab(s) Entresto MULTUM 018399 24 mg-26 mg orally 2 times a day Active 1 tab(s) ropinirole MULTUM 10375 1 mg orally 3 times a day Act filiberto 1 tab(s) Vitamin D3 MULTUM 4871 1000 intl units orally once a day Active 1 tab(s) pantoprazole MULTUM 03678 40 mg orally once a day Act filiberto 1 tab(s) sertraline MULTUM 70809 50 mg orally once a day Activ e 1 tab(s) etodolac MULTUM 44543 300 mg orally 2 times a day Act filiberto 1 cap(s) lisinopril MULTUM 20852 2.5 mg orally once a day Acti ve 1 tab(s) levothyroxine MULTUM 65952 125 mcg (0.125 mg) orally once a day Active 1 tab(s) oxybutynin MULTUM 69245 5 mg orally 3 times a day Act filiberto 1 tab(s) spironolactone MULTUM 67362 25 mg orally 2 times a day Active 1 tab(s) temazepam MULTUM 08751 30 mg orally once a day (at bedtime) Active 1 cap(s) Klor-Con M10 MULTUM 97155 10 mEq orally 2 times a day Active 1 tab(s) Social History Social History Element Qualifiers Date Reported Tobacco Use: yes. Patient is a: former smoker Jun Vital Signs Date/Time: Jul 17, 2016 Weight 189 lbs Height 62 in Blood Pressure Diastolic 78 mm Hg Blood Pressure Systolic 122 mm Hg Summary Purpose [employer] Submission
--- OUTSIDE RECORDS SUMMARY | 2020-02-09 13:14 | XMS REPORT ---
Author Author Karen Pavon Organization [employer] Address Unknown Phone Unavailable Care Team Providers Care Painter Structural Steel Name Role Phone Pura Pavon Unavailable Allergies, Adverse Reactions, Alerts Substance Reaction Event Type Sulfa Drugs Info Not Available Drug Allergy Iodine Info Not Available Drug Allergy codeine Info Not Available Drug Allergy Encounters Encounter Location Date low [facility] Jul 17, 2016 Unknown [facility] August 21, 2016 Problems Problem Type Condition ICD-9 Code Onset Dates Condition Statu s Assessment Essential (primary) hypertension I10 Active Assessment Atherosclerotic heart diseas e of [place] coronary artery without angina pectoris I25.10 Active Assessment Chronic systolic (congestive) heart failure I50.22 Active Assessment Hypothyroidism, unspecified E03.9 Active Assessment Type 1 diabetes mellitus without complications E10.9 Active Medications Medication Code System Code Instructions Start Date End Date Status Dosage Entresto MULTUM 648619 24 mg-26 mg orally 2 times a day Active 1 tab(s) ropinirole MULTUM 92668 1 mg orally 3 times a day Act filiberto 1 tab(s) pantoprazole MULTUM 35004 40 mg orally once a day Act filiberto 1 tab(s) spironolactone MULTUM 40153 25 mg orally 2 times a day Active 1 tab(s) oxybutynin MULTUM 75637 5 mg orally 3 times a day Act filiberto 1 tab(s) temazepam MULTUM 58130 30 mg orally once a day (at bedtime) Active 1 cap(s) sertraline MULTUM 67933 50 mg orally once a day Activ e 1 tab(s) Vitamin D3 MULTUM 4871 1000 intl units orally once a day Active 1 tab(s) fenofibrate MULTUM 61337 160 mg orally once a day Act filiberto 1 tab(s) furosemide MULTUM 54214 40 mg orally once a day Activ e 1 tab(s) Metoprolol Succinate ER MULTUM 16126 25 mg orally once a day Active 1 tab(s) etodolac MULTUM 77791 300 mg orally 2 times a day Act filiberto 1 cap(s) Klor-Con M10 MULTUM 78570 10 mEq orally 2 times a day Active 1 tab(s) Levemir InnoLet MULTUM 00374 100 units/mL subcutaneously Active 0 lisinopril MULTUM 92842 2.5 mg orally once a day Acti ve 1 tab(s) levothyroxine MULTUM 88388 125 mcg (0.125 mg) orally once a day Active 1 tab(s) Social History Social History Element Qualifiers Date Reported Tobacco Use: no. Patient is a: former smoker August 21, 2016 Vital Signs Date/Time: August 21, 2016 Weight 187 lbs Height 62 in Blood Pressure Diastolic 70 mm Hg Blood Pressure Systolic 124 mm Hg Summary Purpose [employer] Submission
--- OUTSIDE RECORDS SUMMARY | 2020-02-09 13:14 | XMS REPORT ---
Author Karen Harvey [facility] [employer] Address Unknown Phone Unavailable Care Team Providers Care Inorganic Chemist Name Role Phone Pura Pavon Unavailable Allergies, Adverse Reactions, Alerts Substance Reaction Event Type Sulfa Drugs Info Not Available Drug Allergy Iodine Info Not Available Drug Allergy codeine Info Not Available Drug Allergy Problems Problem Type Condition Code Onset Dates Condition Statu s Assessment Essential (primary) hypertension I10 Active Assessment Atherosclerotic heart diseas e of [place] coronary artery without angina pectoris I25.10 Active Assessment Chronic systolic (congestive) heart failure I50.22 Active Medications Medication Code System Code Instructions Start Date End Date Status Dosage spironolactone NDC 24747 25 mg orally 2 times a day Active 1 tab(s) sertraline NDC 06870 50 mg orally once a day Activ e 1 tab(s) Klor-Con M10 NDC 47946 10 mEq orally 2 times a day Active 1 tab(s) Levemir InnoLet NDC 74902 100 units/mL subcutaneously Active 0 fenofibrate NDC 77865 160 mg orally once a day Act filiberto 1 tab(s) pantoprazole NDC 07147 40 mg orally once a day Act filiberto 1 tab(s) Entresto NDC 335749 24 mg-26 mg orally 2 times a day Active 1 tab(s) etodolac NDC 24466 300 mg orally 2 times a day Act filiberto 1 cap(s) ropinirole NDC 61702 1 mg orally 3 times a day Act filiberto 1 tab(s) temazepam NDC 15421 30 mg orally once a day (at bedtime) Active 1 cap(s) furosemide NDC 90552 40 mg orally once a day Activ e 1 tab(s) levothyroxine NDC 78727 125 mcg (0.125 mg) orally once a day Active 1 tab(s) lisinopril NDC 42273 2.5 mg orally once a day Acti ve 1 tab(s) oxybutynin NDC 07053 5 mg orally 3 times a day Act filiberto 1 tab(s) Vitamin D3 [facility] 4871 1000 intl units orally once a day Active 1 tab([place] [address] 25 mg orally once a day Active 1 tab(s) Vital Signs Date/Time: September 23, 2016 BMI 34.20 Index Weight 187 lbs Height 62 in Blood Pressure Diastolic 90 mm Hg Blood Pressure Systolic 138 mm Hg Pulse 88 /min Results No Known Results Summary Purpose [employer] Submission
--- OUTSIDE RECORDS SUMMARY | 2020-02-09 13:14 | XMS REPORT ---
Author Karen Harvey Organization [employer] Address Unknown Phone Unavailable Care Team Providers Care Golf Course Mechanic Name Role Phone Pura Pavon Unavailable Allergies, Adverse Reactions, Alerts Substance Reaction Event Type Sulfa Drugs Info Not Available Drug Allergy Iodine Info Not Available Drug Allergy codeine Info Not Available Drug Allergy Problems Problem Type Condition Code Onset Dates Condition Statu s Assessment Unspecified diastolic (congestive) heart failure I50.3 0 Active Assessment Type 1 diabetes mellitus without complications E10.9 Active Assessment Essential (primary) hypertension I10 Active Assessment 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, unspecified F30.10 Active Assessment Hyperlipidemia, unspecified E78.5 Active Medications Medication Code System Code Instructions Start Date End Date Status Dosage furosemide NDC 16221 40 mg orally once a day Activ e 1 tab(s) spironolactone NDC 20814 25 mg orally 2 times a day Active 1 tab(s) Klor-Con M10 NDC 50492 10 mEq orally 2 times a day Active 1 tab(s) temazepam NDC 02525 30 mg orally once a day (at bedtime) Active 1 cap(s) fenofibrate NDC 92327 160 mg orally once a day Act filiberto 1 tab(s) oxybutynin NDC 06215 5 mg orally 3 times a day Act filiberto 1 tab(s) Metoprolol Succinate ER NDC 58356 25 mg orally once a day Active 1 tab(s) sertraline NDC 37072 50 mg orally once a day Activ e 1 tab(s) ropinirole NDC 89656 1 mg orally 3 times a day Act filiberto 1 tab(s) Entresto NDC 413849 24 mg-26 mg orally 2 times a day Active 1 tab(s) lisinopril NDC 55533 2.5 mg orally once a day Acti ve 1 tab(s) levothyroxine NDC 03826 125 mcg (0.125 mg) orally once a day Active 1 tab(s) etodolac NDC 49134 300 mg orally 2 times a day Act filiberto 1 cap(s) pantoprazole NDC 41037 40 mg orally once a day Act filiberto 1 tab(s) Vitamin D3 ND 4871 1000 intl units orally once a day Active 1 tab([place] [address] 100 units/mL subcutaneously Active 0 Vital Signs Date/Time: October 23, 2016 BMI 34.38 Index Weight 188 lbs Height 62 in Blood Pressure Diastolic 90 mm Hg Blood Pressure Systolic 122 mm Hg Pulse 80 /min Results No Known Results Summary Purpose [employer] Submission
--- OUTSIDE RECORDS SUMMARY | 2020-02-09 13:14 | XMS REPORT | Continuity of Care Document ---
Author Author Andrews [employer] Information [employer] Address Unknown Phone Unavailable Care Team Providers Care Dyed Yarn Operator Name Role Phone [employer] 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, unspecified Active Diagnosis 11/02/2016 [facility]: [facility] Hyperlipidemia, unspecified Ac tive Diagnosis 0 11/02/2016 e[facility]: [facility] Atherosclerotic heart disease of redding coronary artery without angina pectoris Active Diagnosis 10/01/2016 [facility]: [facility] Chronic systolic (congestive) heart failure Active Diagnosis 10/01/2016 [facility]: [facility] Encounter for preprocedural cardiovascular examination Active Diagnosis 07/23/2016 [facility]: [facility] Hypothyroidism, unspecified Ac tive Diagnosis 0 08/31/2016 [facility]: [facility] Medications Medication Details Route Status Patient Instructions Ordering Provider Order Date Source furosemide 1 tab(s) orally Active 40 mg orally once a day Pavon eC W: [facility] spironolactone 1 tab(s) orally Active 25 mg orally 2 times a day Pavon eCW: [facility] Klor-Con M10 1 tab(s) orally Active 10 mEq orally 2 times a day Pavon eCW: [facility] temazepam 1 cap(s) orally Active 30 mg orally once a day (at bedtime) Pavon eCW: [facility] fenofibrate 1 tab(s) orally Active 160 mg orally once a da y Pavon eC W: [facility] oxybutynin 1 tab(s) orally Active 5 mg orally 3 times a d ay Pavon eC W: [facility] Metoprolol Succinate ER 1 tab( s) orally Active 25 mg orally once a day Pavon eCW: [facility] sertraline 1 tab(s) orally Active 50 mg orally once a day Pavon eC W: [facility] ropinirole 1 tab(s) orally Active 1 mg orally 3 times a d ay Pavon eC W: [facility] Entresto 1 tab(s) orally Active 24 mg-26 mg orally 2 ti mes a day Pavon eCW: [facility] lisinopril 1 tab(s) orally Active 2.5 mg orally once a da y Pavon eC W: [facility] levothyroxine 1 tab(s) orally Active 125 mcg (0.125 mg) oral ly once a day Pavon eCW: [facility] etodolac 1 cap(s) orally Active 300 mg orally 2 times a day Pavon eC W: [facility] pantoprazole 1 tab(s) orally Active 40 mg orally once a day Pavon eC W: [facility] Vitamin D3 1 tab(s) orally Active 1000 intl units orally once a day Pavon eCW: [facility] Levemir InnoLet 0 subcutaneously Active 100 units/mL subcutaneously Pavon eCW: [facility] Allergies, Adverse Reactions, Alerts Substance Category Reaction Severity Reaction type Status Date Reported Comments Source Sulfa Drugs Adverse Reaction Info Not Available Adverse Reaction Active 10/23/2016 e[facility]: [facility] Iodine Adverse Reaction Info Not Available Adverse Reaction Active 10/23/2016 e[facility]: [facility] codeine Adverse Reaction Info Not Available Adverse Reaction Active 10/23/2016 [facility]: [facility] Immunizations No Data Provided for This Section Results No Data Provided for This Section Pathology Reports No Data Provided for This Section Diagnostic Reports No Data Provided for This Section Consultation Notes No Data Provided for This Section Discharge Summaries No Data Provided for This Section History and Physicals No Data Provided for This Section Vital Signs Vital Sign Value Date Comments Source Weight 188 10/23/2016 e[facility]: [facility] Height 62 0 10/23/2016 [facility]: [facility] Diastolic (mm Hg) 90 10/23/2016 [facility]: [facility] Systolic (mm Hg) 122 10/23/2016 [facility]: [facility] Weight 187 09/23/2016 e[facility]: [facility] Height 62 0 09/23/2016 [facility]: [facility] Diastolic (mm Hg) 90 09/23/2016 e[facility]: [facility] Systolic (mm Hg) 138 09/23/2016 e[facility]: [facility] Weight 187 08/21/2016 e[facility]: [facility] Height 62 0 08/21/2016 e[facility]: [facility] Diastolic (mm Hg) 70 08/21/2016 eCW: [facility] Systolic (mm Hg) 124 08/21/2016 e[facility]: [facility] Weight 189 07/17/2016 e[facility]: [facility] Height 62 0 07/17/2016 e[facility]: [facility] Diastolic (mm Hg) 78 07/17/2016 eCW: [facility] Systolic (mm Hg) 122 07/17/2016 [facility]: [facility] Encounters Location Location Details Encounter Type Encounter Number Reason For Visit Attending Provider ADM Date DC Date Status Source [facility] low EF [id number] 07/17/19 17 07/17/2016 e[facility]: [facility] low EF [id number] 07/17/19 17 07/17/2016 [facility]: [facility] Unknown [id number] 08/22/19 17 08/21/2016 e[facility]: [facility] Procedures No Data Provided for This Section Assessment and Plan No Data Provided for This Section Plan of Care No Data Provided for This Section Social History Social History Date Source Social History ElementQualifiersDate Rep orted Tobacco Use: no. Patient is a: former smoker August 21, 2016 08/21/2016 eCW: [facility] Family History No Data Provided for This Section Advance Directives No Data Provided for This Section Functional Status No Data Provided for This Section
[2020-02-09 13:16] LABS: ALBUMIN 3.3 g/dL (3.5-5.0); ALBUMIN/GLOBULIN RATIO 0.8 (0.8-2.0); ANION GAP 15.7 mmol/L (8-16); CALCIUM 8.8 mg/dL (8.4-10.2); CREATININE, SERUM 0.89 mg/dL (0.57-1.11); POTASSIUM 3.7 mmol/L (3.5-5.1)
--- NOTE | 2020-02-09 13:27 | Diagnostic Imaging Report ---
TECHNIQUE: Frontal view of the chest. INDICATION: ^Y ^SEPSIS ^[id number] ^1245 ^Y COMPARISON: 07/06/2018 DISCUSSION: Limited evaluation due to portable technique. Lines and hardware: None Heart and mediastinum: Cardiomediastinal silhouette is mildly enlarged. Lungs and pleura: Hazy opacities are noted at the left lung base and retrocardiac region. Right lung is clear. Negative for large pneumothorax. Soft tissues and bones: No acute abnormality. IMPRESSION: Hazy/patchy left basilar and retrocardiac opacity is concerning for atelectasis/developing consolidation. Signed by: Abdirizak Carey MD on 02/09/2020 1:24 PM
[2020-02-09] MEDS ORDERED: PIPERACILLIN/TAZO 4.5 GM 100 ML IV ONE (14:00)
[2020-02-09] MEDS ORDERED: ONDANSETRON HCL INJ 2MG/ML 2ML 2 MG/ML VIAL IV PRN (14:00)
--- OUTSIDE RECORDS SUMMARY | 2020-02-09 14:23 | XMS REPORT | Continuity of Care Document ---
Author Author Andrews [email or web address] Information [employer] Address Unknown Phone Unavailable Care Team Providers Care Intervention Teacher Name Role Phone [employer] Information [employer] Unavailable Un available Problems Problem [...] [facility] Atherosclerotic heart disease of [place] coronary artery without angina pectoris Active Diagnosis [...] Status Source [facility] low EF [id number] 07/17/19 17 07/17/2016 e[facility]: [facility] low EF [id number] 07/17/19 17 07/17/2016 [facility]: [facility] Unknown [id number] 08/22/19 17 08/21/2016 eCW: [facility] [...]
[2020-02-09 14:36] LABS: BILIRUBIN,URINE NEGATIVE (NEGATIVE); CLARITY,URINE CLOUDY (CLEAR); COLOR,URINE YELLOW (YELLOW); KETONES,URINE NEGATIVE (NEGATIVE); LEUKOCYTE ESTERASE ,URINE 2+ (NEGATIVE); NITRITE,URINE POSITIVE (NEGATIVE); PROTEIN,URINE DIPSTICK TRACE (NEGATIVE); URINE UROBILINOGEN 1 mg/dL (0.2 - 1)
--- NOTE | 2020-02-09 14:38 | Diagnostic Imaging Report ---
CT BRAIN WO HISTORY: Altered mental status COMPARISON: Head CT 07/14/2018 Technique: Noncontrast axial scans were obtained from skull base to the vertex. Coronal and sagittal reconstructions obtained from the axial data. One or more of the following dose reduction techniques were used: Automated exposure control, adjustment of the mA and/or kV according to patient size, and/or utilization of iterative reconstruction technique. Beam hardening artifacts obscure some details. DISCUSSION: Scalp/Skull: Unremarkable. Brain sulci: Mildly prominent. Ventricles: Compensatory dilatation. Extra-axial spaces: No masses or fluid collections. Carotid siphon calcifications are present. Parenchyma: Questionable small hypodensity in the left siomara could be due to an age indeterminate lacunar infarct. Severe bilateral deep white matter hypodensity is likely chronic microvascular ischemic change. Otherwise, no masses, hemorrhage, or large vascular territory acute infarct. Dural sinuses: No abnormal densities. Sellar/Suprasellar region: Intact. Skull base: Intact. Incidental findings: None. IMPRESSION: 1. Questionable small hypodensity in the left siomara could be due to an age indeterminate lacunar infarct or beam hardening artifact. 2. Otherwise, no acute intracranial abnormalities. 3. Severe supratentorial chronic microvascular ischemic change. 4. Generalized cerebral volume loss. Signed by: Dr. Festus Squires M.D. on 02/09/2020 2:35 PM
[2020-02-09 14:46] LABS: BACTERIA,URINE MANY /HPF; EPITHELIAL CELLS,URINE FEW /LPF; WBC,URINE (MAN) >50 /HPF (0-5)
--- NOTE | 2020-02-09 15:30 | NUR ---
Received patient from ER via stretcher, alert to self and place only. Transferred to bed x2 assist, tolerated transfer well. Repositioned for comfort. Bilateral 20G IV in place to antecubital, patent to flush. Matias catheter in place, securement device in place to left thigh. Oriented to room, bed rails, call light, bathroom and activity. Verbalized understanding. Call light and personal belongings within reach. Bed in low position, side rails x2 up.
[2020-02-09 16:00] VITALS: BP 122/64
--- NOTE | 2020-02-09 16:00 | NUR ---
Dr. Mills called and notified of patient admission.
[2020-02-09 16:33] VITALS: BP 122/64
[2020-02-09 16:41] VITALS: BP 122/64
[2020-02-09 20:08] VITALS: BP 136/75
[2020-02-09 20:45] VITALS: BP 136/75
[2020-02-09 23:30] VITALS: BP 121/68
[2020-02-10 04:30] VITALS: BP 145/74
[2020-02-10] MEDS ORDERED: ALBUTEROL SULFATE HFA 8GM INHALATION AEROSOL INH PRN (04:45)
[2020-02-10] MEDS ORDERED: LIDOCAINE 4% PATCH TP PRN (05:00)
[2020-02-10] MEDS: ACETAMINOPHEN 325 MG TAB PO PRN ×2 (05:09→17:32)
[2020-02-10 05:17] LABS: BASOPHILS # (AUTO) 0.1 (0.0-0.1); BASOPHILS % 0.5 % (0.0-1.0); EOSINOPHILS % 0.1 % (0.0-6.0); HEMATOCRIT 39.8 % (34.2-44.1); HEMOGLOBIN 11.8 g/dL (12.0-16.0); LYMPHOCYTES # (AUTO) 3.5 (1.0-3.2); LYMPHOCYTES % 32.4 % (18.0-39.1); MEAN CORPUSCULAR HEMOGLOBIN 25.1 pg (28-32); MEAN CORPUSCULAR HGB CONC 29.6 g/dL (31-35); MEAN CORPUSCULAR VOLUME 84.7 fL (81-99); MONOCYTES % 9.4 % (4.4-11.3); NEUTROPHILS # (AUTO) 6.1 (2.1-6.9); NEUTROPHILS % 57.2 % (38.7-80.0); PLATELET COUNT 287 x10e3/uL (140-360); RED CELL DISTRIBUTION WIDTH 15.9 % (11.7-14.4)
[2020-02-10] MEDS ORDERED: SODIUM CHLORIDE 0.9% 250ML 250 ML ONE (05:18)
[2020-02-10 05:36] LABS: ANION GAP 12.7 mmol/L (8-16); BLOOD UREA NITROGEN 8 mg/dL (7-26); BUN/CREATININE RATIO 10 (6-25); CALCIUM 8.5 mg/dL (8.4-10.2); CARBON DIOXIDE 29 mmol/L (22-29); CHLORIDE 104 mmol/L (98-107); CREATININE, SERUM 0.78 mg/dL (0.57-1.11); EST GLOMERULAR FILTRATION RATE > 60 ML/MIN (60-); GLUCOSE 142 mg/dL (74-118); POTASSIUM 3.7 mmol/L (3.5-5.1); SODIUM 142 mmol/L (136-145)
[2020-02-10] MEDS: LEVOTHYROXINE SODIUM 125 MCG TAB PO SCH (05:40)
[2020-02-10] MEDS: CEFTRIAXONE SOD 1 GM/NS 50 ML 50 ML IV SCH (05:40)
[2020-02-10] MEDS ORDERED: AZITHROMYCIN 250MG/NS 100 ML 100 ML IV SCH (06:00)
[2020-02-10 08:00] VITALS: BP 134/61
[2020-02-10] MEDS: OXYBUTYNIN CHLORIDE 5 MG TAB PO SCH (08:49)
[2020-02-10 08:50] VITALS: BP 134/101
[2020-02-10] MEDS: METOPROLOL SUCCINATE 25 MG TAB XL PO SCH (08:50)
[2020-02-10] MEDS: LISINOPRIL 2.5 MG TAB PO SCH (08:50)
[2020-02-10] MEDS: PANTOPRAZOLE SOD 40 MG TABEC PO SCH (08:50)
[2020-02-10] MEDS: FENOFIBRATE 145 MG TAB PO SCH (08:50)
[2020-02-10] MEDS: SERTRALINE HCL 50 MG TAB PO SCH (08:50)
[2020-02-10] MEDS: NYSTATIN 15 GM POWDER UD BTL TOP SCH ×2 (09:00→17:32)
[2020-02-10] MEDS ORDERED: LEVOTHYROXINE SODIUM 75 MCG TAB PO SCH (09:00)
[2020-02-10] MEDS: AZITHROMYCIN 250MG/NS 100 ML 100 ML IV SCH (09:15)
[2020-02-10 12:00] VITALS: BP 126/65
[2020-02-10 16:07] VITALS: BP 141/72
--- NOTE | 2020-02-10 19:00 | NUR ---
RECEIVED PATIENT IN BEDSIDE SHIFT REPORT. PATIENT RESTING IN BED AT THIS TIME. PATIENT ORIENTED x3, VERBALIZED YEAR AND WHO IS PRESIDENT. NO PAIN REPORTED. NO S&S OF DISTRESS NOTED. SIMMONS DRAINING CLEAR YELLOW URINE. BED LOCKED IN LOWEST POSITION, SIDE RAILS UPX2, CALL LIGHT IN REACH.
[2020-02-10 20:00] VITALS: BP 158/75
--- NOTE | 2020-02-10 20:00 | NUR ---
PATIENT REPORTS SHE PEED, SIMMONS APPEARS TO BE LEAKING. PATIENT CLEANED AT THIS TIME AND SIMMONS CARE PERFORMED. ADVANCED CATHETER, DEFLATED AND REINFLATED BALLOON AND ADDED AN ADDITIONAL 5 ML OF NS TO BALLOON, URINE IMMEDIATELY STARTED DRAINING PROPERLY. WILL CONTINUE TO MONITOR.
[2020-02-10] MEDS: TEMAZEPAM 15 MG CAP PO SCH (22:04)
[2020-02-11] VITALS (9 sets, daily range): BP systolic 147–170; BP diastolic 73–89
[2020-02-11] MEDS: ACETAMINOPHEN 325 MG TAB PO PRN ×2 (01:00→19:51)
[2020-02-11] MEDS: CEFTRIAXONE SOD 1 GM/NS 50 ML 50 ML IV SCH (06:26)
[2020-02-11] MEDS: LEVOTHYROXINE SODIUM 125 MCG TAB PO SCH (06:50)
[2020-02-11] MEDS: NYSTATIN 15 GM POWDER UD BTL TOP SCH ×2 (09:00→17:00)
[2020-02-11] MEDS: OXYBUTYNIN CHLORIDE 5 MG TAB PO SCH (09:01)
[2020-02-11] MEDS: METOPROLOL SUCCINATE 25 MG TAB XL PO SCH (09:02)
[2020-02-11] MEDS: PANTOPRAZOLE SOD 40 MG TABEC PO SCH (09:02)
[2020-02-11] MEDS: LISINOPRIL 2.5 MG TAB PO SCH (09:02)
[2020-02-11] MEDS: FENOFIBRATE 145 MG TAB PO SCH (09:02)
[2020-02-11] MEDS: SERTRALINE HCL 50 MG TAB PO SCH (09:02)
--- NOTE | 2020-02-11 10:20 | NUR ---
PT IS FROM THE [facility] , THEY PREFER [facility] THEY WOULD PREFER US TO SEND THEM THE ORDER AT THE [facility] AND THEY WILL SET UP, VIRAJ IS RECRUITING SPECIALIST AND HER EMAIL IS [email or web address]
[2020-02-11] MEDS: AZITHROMYCIN 250MG/NS 100 ML 100 ML IV SCH (11:00)
[2020-02-11] MEDS: HYDRALAZINE HCL 20 MG/ML VIAL IV PRN (11:59)
--- NOTE | 2020-02-11 13:30 | NUR ---
provided pastoral presence , scripture and prayer support. chaplain Martinez
--- NOTE | 2020-02-11 14:48 | NUR ---
OFFICE FOR [facility] IS [phone] FAX IS [phone]
--- NOTE | 2020-02-11 17:20 | NUR ---
Nutrition Screen Note RD Recommendation for Physician: -Recommend adding ADA diet to diet order -If PO intake is <50% of meals, offer Glucerna nutrition supplement Plan of Care: RD following, monitoring for tolerance and adequacy Nutrition reason for involvement: Nutrition Risk Trigger Primary Diagnose(s): pneumonia PMH: diabetes, chronic kidney disease stage 3, hypertension, hypothyroidism. Ht: 60 in Wt: 162 lb BMI: 31.6 kg/m2 IBW:[address] Assessment: (02/11/20) Chart reviewed. Labs and meds reviewed. Pt is an 84 year old female admitted with pneumonia. Attempted to speak to pt, but she was hard of hearing. Spoke to RN who reported pt picked at her breakfast this morning. It is recorded that pt consumed 25-75% of meals yesterday. If PO intake is <50% of meals, offer Glucerna nutrition supplement. Per weight history, pt weighed 172 lbs in Jul 2017. There are no recorded weights in the past year. Pt currently has a weight of 162 lbs in chart. Will continue to monitor. Current Diet: cardiac Malnutrition Evaluation (02/11/20) The patient does not meet criteria for a specified degree of malnutrition at this time. Will re-evaluate at follow-up as appropriate. Diet Education Needs Assessment: Diet education not indicated. Nutrition Care Level: low Signed: Fátima Marin, RD, LD
[2020-02-11] MEDS: TEMAZEPAM 15 MG CAP PO SCH (19:51)
[2020-02-12] VITALS (8 sets, daily range): BP systolic 138–167; BP diastolic 68–97
[2020-02-12] MEDS: HYDRALAZINE HCL 20 MG/ML VIAL IV PRN (00:53)
[2020-02-12] MEDS: CEFTRIAXONE SOD 1 GM/NS 50 ML 50 ML IV SCH (05:28)
[2020-02-12] MEDS: LEVOTHYROXINE SODIUM 125 MCG TAB PO SCH (05:28)
--- NOTE | 2020-02-12 07:00 | NUR ---
RECEIVED PATIENT AWAKE RESTING IN BED NO S/S OF DISTRESS. BED LOW, WHEELS LOCKED, SIDE RAILS X2. CALL LIGHT IN REACH WILL CONTINUE TO MONITOR.
[2020-02-12] MEDS: OXYBUTYNIN CHLORIDE 5 MG TAB PO SCH (08:18)
[2020-02-12] MEDS: AZITHROMYCIN 250MG/NS 100 ML 100 ML IV SCH (08:18)
[2020-02-12] MEDS: SERTRALINE HCL 50 MG TAB PO SCH (08:19)
[2020-02-12] MEDS: FENOFIBRATE 145 MG TAB PO SCH (08:19)
[2020-02-12] MEDS: PANTOPRAZOLE SOD 40 MG TABEC PO SCH (08:19)
[2020-02-12] MEDS: LISINOPRIL 2.5 MG TAB PO SCH (08:19)
[2020-02-12] MEDS: METOPROLOL SUCCINATE 25 MG TAB XL PO SCH (08:19)
[2020-02-12] MEDS: NYSTATIN 15 GM POWDER UD BTL TOP SCH ×2 (08:55→16:15)
--- NOTE | 2020-02-12 08:57 | Progress Note ---
DATE: SUBJECTIVE: An 84-year-old patient admitted for severe sepsis and pneumonia. Currently, the patient is doing better according to her, wants to go home, but has not done any physical therapy as of yet. The patient's active medications acetaminophen, azithromycin, Rocephin, fenofibrate, hydralazine, levothyroxine, lidocaine, lisinopril, metoprolol, nystatin, oxybutynin, pantoprazole, sertraline and temazepam. PHYSICAL EXAMINATION: VITAL SIGNS: Temperature, 99.3 T-max that was at 7:52 am today, respirations 20, blood pressure is 132/78, pulse oximetry of 95%. HEENT: Normocephalic and atraumatic. Pupils are reactive. CVS: S1 and S2 normal. Regular rate and rhythm. LUNGS: Decreased air entry noted. Rhonchi noted the left side. ABDOMEN: Soft and nontender, nondistended. EXTREMITIES: No clubbing, no cyanosis, no edema. LABORATORY STUDIES: White count back on February 09 was 10.66, hemoglobin of 11.8, hematocrit of 39.8. Chemistries; glucose has been running from 130s to 170s. Last creatinine was 0.78. SEROLOGY: Coronavirus not detected. IMAGING STUDIES: From the shows left basilar pneumonia. MICROBIOLOGY: Urine culture grew E coli, sensitive to Rocephin. ASSESSMENT: Ms. Karen Aragon with: 1. Severe sepsis. 2. Pneumonia. 3. Hypertension. 4. Hyperlipidemia. 5. Depression. 6. Hypothyroidism. PLAN: 1. Continue with Rocephin for UTI and for pneumonia. 2. Continue with all her regular medications, albuterol, Atrovent treatments have been given. Continue rate control with metoprolol. Further recommendation and clinical course. We will order physical therapy to evaluate the patient and also put SCDs on. MD TALAT Crawley/DARYLL /[id number]
[2020-02-12] MEDS: ACETAMINOPHEN 325 MG TAB PO PRN (14:54)
--- NOTE | 2020-02-12 19:15 | NUR ---
patient received awake alert, lying quietly in bed. no c/o pain noted. /nc in use. no acute distress noted. pm assessment complete. call peñaloza placed within reach. patient instructed to call for assistance when needed.
--- NOTE | 2020-02-12 20:27 | NUR ---
report given to Caroline Aguilera RN at this time.
[2020-02-12] MEDS: TEMAZEPAM 15 MG CAP PO SCH (21:15)
--- NOTE | 2020-02-12 21:15 | NUR ---
Patient visited in room during nursing rounds. Patient alert and oriented x3. No distress or discomfort noted. On 2L NC with O2 sat at 96%. SCDs and patton catheter in place for urinary retention. Patient on scheduled IV antibiotics. Pt believes she will get discharged tomorrow. Call peñaloza within reach. Will monitor pt closely.
[2020-02-13] VITALS: BP 167/89
[2020-02-13 00:44] VITALS: BP 165/89
[2020-02-13 04:00] VITALS: BP 151/80
[2020-02-13] MEDS ORDERED: SODIUM CHLORIDE 0.9% 250ML 250 ML ONE (05:55)
[2020-02-13] MEDS: LEVOTHYROXINE SODIUM 125 MCG TAB PO SCH (06:00)
--- NOTE | 2020-02-13 06:18 | NUR ---
Dr. Diallo saw pt in room. told patient he plans to discharge pt today after CM works on home health and after PT session today.
[2020-02-13] MEDS: CEFTRIAXONE SOD 1 GM/NS 50 ML 50 ML IV SCH (06:40)
[2020-02-13 06:59] LABS: BASOPHILS % 0.3 % (0.0-1.0); EOSINOPHILS % 0.1 % (0.0-6.0); HEMATOCRIT 38.9 % (34.2-44.1); HEMOGLOBIN 12.3 g/dL (12.0-16.0); LYMPHOCYTES # (AUTO) 2.4 (1.0-3.2); LYMPHOCYTES % 27.7 % (18.0-39.1); MEAN CORPUSCULAR HEMOGLOBIN 26.2 pg (28-32); MEAN CORPUSCULAR HGB CONC 31.6 g/dL (31-35); MEAN CORPUSCULAR VOLUME 82.8 fL (81-99); MONOCYTES # (AUTO) 0.5 (0.2-0.8); MONOCYTES % 5.9 % (4.4-11.3); NEUTROPHILS # (AUTO) 5.6 (2.1-6.9); NEUTROPHILS % 65.8 % (38.7-80.0); PLATELET COUNT 356 x10e3/uL (140-360); RED CELL DISTRIBUTION WIDTH 15.3 % (11.7-14.4)
--- NOTE | 2020-02-13 07:00 | NUR ---
RECEIVED PATIENT AWAKE RESTING IN BED NO S/S OF DISTRESS. BED LOW, WHEELS LOCKED, SIDE RAILS X2. CALL LIGHT IN REACH WILL CONTINUE TO MONITOR.
[2020-02-13 07:33] LABS: ANION GAP 15.7 mmol/L (8-16); BLOOD UREA NITROGEN 8 mg/dL (7-26); BUN/CREATININE RATIO 11 (6-25); CARBON DIOXIDE 25 mmol/L (22-29); CHLORIDE 103 mmol/L (98-107); CREATININE, SERUM 0.75 mg/dL (0.57-1.11); EST GLOMERULAR FILTRATION RATE > 60 ML/MIN (60-); GLUCOSE 154 mg/dL (74-118); POTASSIUM 3.7 mmol/L (3.5-5.1); SODIUM 140 mmol/L (136-145)
--- NOTE | 2020-02-13 07:54 | NUR ---
CM met with pt regarding home health. She agrees and had CM speak with Al, . He agrees to home health set up with [facility]. Choice letter signed and copy placed in pt bedside folder, original placed in chart. CM called the [facility]. They do not have fax, only the email for Ekaterina that EDGAR noted previously.
[2020-02-13] MEDS: NYSTATIN 15 GM POWDER UD BTL TOP SCH (08:38)
--- NOTE | 2020-02-13 08:45 | NUR ---
Home Health packet prepared and given to Dora DODD to send back to the [facility] with the patient when she is discharged. Note on packet to give to Ekaterina.
[2020-02-13] MEDS: PANTOPRAZOLE SOD 40 MG TABEC PO SCH (08:59)
[2020-02-13] MEDS: LISINOPRIL 2.5 MG TAB PO SCH (08:59)
[2020-02-13] MEDS: FENOFIBRATE 145 MG TAB PO SCH (08:59)
[2020-02-13] MEDS: OXYBUTYNIN CHLORIDE 5 MG TAB PO SCH (08:59)
[2020-02-13] MEDS: AZITHROMYCIN 250MG/NS 100 ML 100 ML IV SCH (08:59)
[2020-02-13] MEDS: SERTRALINE HCL 50 MG TAB PO SCH (09:00)
--- NOTE | 2020-02-13 09:00 | NUR ---
REMOVED PATIENTS SIMMONS. CATHETER TIP INTACT ON REMOVAL. PATIENT DUE TO VOID.
[2020-02-13 09:01] VITALS: BP 155/85
[2020-02-13 09:04] VITALS: BP 155/85
--- NOTE | 2020-02-13 09:05 | Progress Note ---
DATE: SUBJECTIVE: The patient is an 84-year-old female, who came in with pneumonia and urinary tract infection. Microbiology grew E. coli. The patient is feeling better. Did walk with physical therapy yesterday, was able to take few steps without any difficulty using a walker. No chest pain. No shortness of breath. Wants to go home. OBJECTIVE: VITAL SIGNS: Temperature is 97.1, pulse of 70, respirations of 18, blood pressure is 151/80, and pulse oximetry of 93%. HEENT: Normocephalic and atraumatic. Pupils are reactive. CVS: S1 and S2 normal. Regular rate and rhythm. LUNGS: Decreased air entry and right-sided rhonchi. EXTREMITIES: No clubbing. No cyanosis. No edema. MICROBIOLOGY: Noted E. coli, sensitive to cefepime. LABORATORY VALUES: Still pending for today. ASSESSMENT: Ms. Karen Aragon with: 1. Severe sepsis. 2. Pneumonia. 3. Hypertension. 4. Urinary tract infection. 5. Hyperlipidemia. 6. Depression. 7. Hypothyroidism. PLAN: Continue with Rocephin and azithromycin for pneumonia. We will switch to a 5-day course of Levaquin and be able to discharge today. Continue with home medications and follow up with Dr. Mills in about a week or 2. Discharge depending on finding Home Health for the patient and also depending on physical therapy today. Further recommendation per clinical course. We will continue to monitor the patient. Again, the patient can be discharged today on 5-day course of antibiotic. MD TALAT Crawley/NEERU /[id number]
--- NOTE | 2020-02-13 09:19 | NUR ---
PATIENT HAS VOIDED SINCE SIMMONS REMOVAL.
[2020-02-13] MEDS: METOPROLOL SUCCINATE 25 MG TAB XL PO SCH (09:55)
[2020-02-13] MEDS: ACETAMINOPHEN 325 MG TAB PO PRN (10:40)
--- NOTE | 2020-02-13 11:24 | NUR ---
REMOVED PATIENTS IV. CATHETER TIP INTACT AND PRESSURE DRESSING APPLIED.
--- NOTE | 2020-02-13 11:30 | NUR ---
PATIENT DISCHARGED FROM FACILITY. PATIENT GATHERED ALL PERSONAL BELONGINGS, DISCHARGE INSTRUCTIONS, AND FOLLOW UP INFORMATION. PATIENT LEFT UNIT IN WHEELCHAIR AND WENT HOME VIA PRIVATE AUTO. NO S/S OF DISTRESS WHEN LEAVING FACILITY.
== END 2020-02-13 11:30 | disposition home or self-care (01) | DRG 871 ==
LOC: ER 12:13 → ERHOLD 14:20 → MED/SURG2 15:40
PROVIDERS: ADMIT Internal Medicine; ATTEND Internal Medicine
DX: A41.9 Sepsis, unspecified organism (principal); J18.9 Pneumonia, unspecified organism; N39.0 Urinary tract infection, site not specified; E11.9 Type 2 diabetes mellitus without complications; I10 Essential (primary) hypertension; E03.9 Hypothyroidism, unspecified; K21.9 Gastro-esophageal reflux disease without esophagitis; E66.9 Obesity, unspecified; Z68.31 Body mass index [BMI] 31.0-31.9, adult; R65.20 Severe sepsis without septic shock; F32.9 Major depressive disorder, single episode, unspecified; E78.5 Hyperlipidemia, unspecified; B96.20 Unspecified Escherichia coli [E. coli] as the cause of diseases classified elsewhere; Z11.59 Encounter for screening for other viral diseases
CPT/HCPCS: 36415; 70450; 71045; 80048; 80053; 81001; 82948; 83605; 85025; 87040; 87086; 87186; 97139; 99285; J0360; J0696; J2405; J2543; J7050; U0002

== ENCOUNTER 2021-07-24 08:38 | Inpatient (IN) | payer MEDICARE ==
[~2021-07-24] VITALS: Ht 160 cm; Wt 73.7 kg
[2021-07-24 09:18] LABS: BASOPHILS % 0.4 % (0.0-1.0); HEMATOCRIT 40.2 % (34.2-44.1); HEMOGLOBIN 12.2 g/dL (12.0-16.0); LYMPHOCYTES # (AUTO) 2.6 (1.0-3.2); LYMPHOCYTES % 25.4 % (18.0-39.1); MEAN CORPUSCULAR HEMOGLOBIN 24.8 pg (28-32); MEAN CORPUSCULAR HGB CONC 30.3 g/dL (31-35); MEAN CORPUSCULAR VOLUME 81.7 fL (81-99); MONOCYTES # (AUTO) 0.5 (0.2-0.8); MONOCYTES % 4.8 % (4.4-11.3); NEUTROPHILS % 69.1 % (38.7-80.0); PLATELET COUNT 359 x10e3/uL (140-360); RED BLOOD COUNT 4.92 x10e6/uL (3.6-5.1); RED CELL DISTRIBUTION WIDTH 16.9 % (11.7-14.4)
[2021-07-24 09:42] LABS: ALBUMIN 3.8 g/dL (3.5-5.0); ALBUMIN/GLOBULIN RATIO 0.9 (0.8-2.0); CALCIUM 9.3 mg/dL (8.4-10.2); CREATININE, SERUM 0.92 mg/dL (0.57-1.11)
[2021-07-24] MEDS ORDERED: FUROSEMIDE INJ 10 MG/ML 2 ML VIAL IV ONE ×2 (14:30→18:00)
[2021-07-24 15:00] VITALS: BP 143/84
[2021-07-24 16:56] VITALS: BP 141/96
[2021-07-24] MEDS: CEFTRIAXONE 1 GM in SODIUM CHLORIDE 0.9% 50ML 50 ML IV SCH (17:29)
[2021-07-24] MEDS: AZITHROMYCIN 250 MG TAB PO SCH (17:29)
[2021-07-24 18:40] VITALS: BP 141/96
[2021-07-24] MEDS: IPRATROPIUM BROMIDE 0.02% 2.5 ML NEB NEB SCH (18:45)
[2021-07-24 20:00] VITALS: BP 130/73
[2021-07-24 21:10] VITALS: BP 130/73
[2021-07-25] VITALS (8 sets, daily range): BP systolic 104–151; BP diastolic 46–83
[2021-07-25] MEDS ORDERED: METFORMIN HCL500 MG PO ×2 (00:44→00:47)
[2021-07-25] MEDS ORDERED: NEURONTIN300 MG PO ×2 (00:44→00:47)
[2021-07-25] MEDS ORDERED: LEVOTHYROXINE112 MCG PO ×2 (00:44→00:47)
[2021-07-25] MEDS ORDERED: FENOFIBRATE145 MG PO ×2 (00:44→00:47)
[2021-07-25] MEDS ORDERED: PANTOPRAZOLE SO40 MG PO (00:47)
[2021-07-25] MEDS ORDERED: SERTRALINE HCL50 MG PO (00:47)
[2021-07-25] MEDS ORDERED: METOPROLOL SUCC25 MG PO (00:47)
[2021-07-25 05:02] LABS: BASOPHILS % 0.3 % (0.0-1.0); HEMATOCRIT 35.9 % (34.2-44.1); HEMOGLOBIN 11.2 g/dL (12.0-16.0); LYMPHOCYTES # (AUTO) 2.3 (1.0-3.2); LYMPHOCYTES % 22.9 % (18.0-39.1); MEAN CORPUSCULAR HEMOGLOBIN 24.9 pg (28-32); MEAN CORPUSCULAR HGB CONC 31.2 g/dL (31-35); MEAN CORPUSCULAR VOLUME 79.8 fL (81-99); MONOCYTES # (AUTO) 0.7 (0.2-0.8); MONOCYTES % 6.9 % (4.4-11.3); NEUTROPHILS # (AUTO) 7.1 (2.1-6.9); NEUTROPHILS % 69.4 % (38.7-80.0); PLATELET COUNT 331 x10e3/uL (140-360); RED CELL DISTRIBUTION WIDTH 16.5 % (11.7-14.4)
[2021-07-25 05:21] LABS: ANION GAP 15.6 mmol/L (8-16); POTASSIUM 3.6 mmol/L (3.5-5.1)
[2021-07-25] MEDS: LEVOTHYROXINE SODIUM 112 MCG TAB PO SCH (05:35)
[2021-07-25] MEDS: PANTOPRAZOLE SOD 40 MG TABEC PO SCH (07:30)
[2021-07-25] MEDS: IPRATROPIUM BROMIDE 0.02% 2.5 ML NEB NEB SCH ×4 (07:46→19:30)
[2021-07-25] MEDS: METFORMIN HCL 500 MG TAB PO SCH ×2 (08:00→16:31)
[2021-07-25] MEDS: AZITHROMYCIN 250 MG TAB PO SCH (09:00)
[2021-07-25] MEDS: SERTRALINE HCL 50 MG TAB PO SCH (09:00)
[2021-07-25] MEDS: FENOFIBRATE 160 MG TAB PO SCH (09:00)
[2021-07-25] MEDS: GABAPENTIN 300 MG CAP PO SCH ×4 (09:00→20:35)
[2021-07-25] MEDS: CEFTRIAXONE 1 GM in SODIUM CHLORIDE 0.9% 50ML 50 ML IV SCH (09:00)
[2021-07-25] MEDS: METOPROLOL SUCCINATE 25 MG TAB XL PO SCH (09:00)
[2021-07-25] MEDS: FUROSEMIDE 20 MG TAB PO SCH (09:00)
[2021-07-25] MEDS ORDERED: SODIUM CHLORIDE 0.9% 50ML 50 ML ONE (09:41)
[2021-07-26] VITALS (8 sets, daily range): BP systolic 119–155; BP diastolic 61–88
[2021-07-26] MEDS: IPRATROPIUM BROMIDE 0.02% 2.5 ML NEB NEB SCH ×4 (00:20→19:00)
[2021-07-26] MEDS: LEVOTHYROXINE SODIUM 112 MCG TAB PO SCH (05:50)
[2021-07-26] MEDS: PANTOPRAZOLE SOD 40 MG TABEC PO SCH (07:30)
[2021-07-26] MEDS: METFORMIN HCL 500 MG TAB PO SCH ×2 (08:00→17:00)
[2021-07-26] MEDS: CEFTRIAXONE 1 GM in SODIUM CHLORIDE 0.9% 50ML 50 ML IV SCH (09:00)
[2021-07-26] MEDS: FENOFIBRATE 160 MG TAB PO SCH (09:00)
[2021-07-26] MEDS: GABAPENTIN 300 MG CAP PO SCH ×4 (09:00→21:00)
[2021-07-26] MEDS: METOPROLOL SUCCINATE 25 MG TAB XL PO SCH (09:00)
[2021-07-26] MEDS: SERTRALINE HCL 50 MG TAB PO SCH (09:00)
[2021-07-26] MEDS: AZITHROMYCIN 250 MG TAB PO SCH (09:00)
[2021-07-26] MEDS: FUROSEMIDE 20 MG TAB PO SCH (09:00)
[2021-07-26] MEDS: BISACODYL 5 MG TAB EC PO PRN ×2 (09:11→17:25)
[2021-07-26] MEDS: Vancomycin IV 1 GM in SODIUM CHLORIDE 0.9% 250ML 250 ML IV SCH ×2 (12:30→21:00)
[2021-07-26] MEDS: ONDANSETRON HCL INJ 2MG/ML 2ML 2 MG/ML VIAL IV PRN ×2 (17:25→21:30)
[2021-07-26] MEDS: TEMAZEPAM 7.5 MG CAP PO PRN (21:07)
[2021-07-27] VITALS (8 sets, daily range): BP systolic 115–145; BP diastolic 70–78
[2021-07-27] MEDS: IPRATROPIUM BROMIDE 0.02% 2.5 ML NEB NEB SCH ×4 (01:15→11:43)
[2021-07-27] MEDS: LEVOTHYROXINE SODIUM 112 MCG TAB PO SCH (05:09)
[2021-07-27 05:38] LABS: BASOPHILS # (AUTO) 0.1 (0.0-0.1); BASOPHILS % 0.5 % (0.0-1.0); EOSINOPHILS % 0.1 % (0.0-6.0); HEMATOCRIT 41.9 % (34.2-44.1); HEMOGLOBIN 12.3 g/dL (12.0-16.0); LYMPHOCYTES # (AUTO) 2.7 (1.0-3.2); LYMPHOCYTES % 28.8 % (18.0-39.1); MEAN CORPUSCULAR HEMOGLOBIN 25.2 pg (28-32); MEAN CORPUSCULAR HGB CONC 29.4 g/dL (31-35); MEAN CORPUSCULAR VOLUME 85.7 fL (81-99); MONOCYTES # (AUTO) 0.8 (0.2-0.8); MONOCYTES % 7.9 % (4.4-11.3); NEUTROPHILS # (AUTO) 5.9 (2.1-6.9); NEUTROPHILS % 62.3 % (38.7-80.0); PLATELET COUNT 251 x10e3/uL (140-360); RED BLOOD COUNT 4.89 x10e6/uL (3.6-5.1); RED CELL DISTRIBUTION WIDTH 16.5 % (11.7-14.4)
[2021-07-27 06:08] LABS: ALBUMIN 3.3 g/dL (3.5-5.0); ALBUMIN/GLOBULIN RATIO 0.9 (0.8-2.0); ANION GAP 12.6 mmol/L (8-16); CALCIUM 9.1 mg/dL (8.4-10.2); CREATININE, SERUM 0.94 mg/dL (0.57-1.11); MAGNESIUM 1.7 MG/DL (1.3-2.1); POTASSIUM 3.6 mmol/L (3.5-5.1)
[2021-07-27] MEDS: Vancomycin IV 1 GM in SODIUM CHLORIDE 0.9% 250ML 250 ML IV SCH ×2 (09:35→21:00)
[2021-07-27] MEDS: METFORMIN HCL 500 MG TAB PO SCH ×2 (09:35→16:47)
[2021-07-27] MEDS: GABAPENTIN 300 MG CAP PO SCH ×4 (09:35→20:20)
[2021-07-27] MEDS: PANTOPRAZOLE SOD 40 MG TABEC PO SCH (09:35)
[2021-07-27] MEDS: FENOFIBRATE 160 MG TAB PO SCH (09:35)
[2021-07-27] MEDS: FUROSEMIDE 20 MG TAB PO SCH (09:35)
[2021-07-27] MEDS: SERTRALINE HCL 50 MG TAB PO SCH (09:36)
[2021-07-27] MEDS: METOPROLOL SUCCINATE 25 MG TAB XL PO SCH (09:36)
[2021-07-27] MEDS: TEMAZEPAM 7.5 MG CAP PO PRN (20:20)
[2021-07-28] VITALS (8 sets, daily range): BP systolic 127–134; BP diastolic 63–76
[2021-07-28] MEDS: IPRATROPIUM BROMIDE 0.02% 2.5 ML NEB NEB SCH ×4 (02:35→19:20)
[2021-07-28] MEDS: LEVOTHYROXINE SODIUM 112 MCG TAB PO SCH (06:04)
[2021-07-28] MEDS: PANTOPRAZOLE SOD 40 MG TABEC PO SCH (07:30)
[2021-07-28] MEDS: METFORMIN HCL 500 MG TAB PO SCH ×2 (08:00→16:35)
[2021-07-28] MEDS: GABAPENTIN 300 MG CAP PO SCH ×3 (09:00→20:06)
[2021-07-28] MEDS: METOPROLOL SUCCINATE 25 MG TAB XL PO SCH (09:00)
[2021-07-28] MEDS: Vancomycin IV 1 GM in SODIUM CHLORIDE 0.9% 250ML 250 ML IV SCH ×2 (09:00→20:06)
[2021-07-28] MEDS: SERTRALINE HCL 50 MG TAB PO SCH (09:00)
[2021-07-28] MEDS: FENOFIBRATE 160 MG TAB PO SCH (09:00)
[2021-07-28] MEDS: FUROSEMIDE 20 MG TAB PO SCH (09:00)
[2021-07-28] MEDS: TEMAZEPAM 7.5 MG CAP PO PRN (20:06)
[2021-07-29] VITALS: BP 126/60
[2021-07-29] MEDS: IPRATROPIUM BROMIDE 0.02% 2.5 ML NEB NEB SCH ×3 (02:50→12:12)
[2021-07-29 04:00] VITALS: BP 132/56
[2021-07-29] MEDS: LEVOTHYROXINE SODIUM 112 MCG TAB PO SCH (05:30)
[2021-07-29] MEDS: PANTOPRAZOLE SOD 40 MG TABEC PO SCH (07:30)
[2021-07-29 08:00] VITALS: BP 132/56
[2021-07-29] MEDS: METFORMIN HCL 500 MG TAB PO SCH (08:00)
[2021-07-29] MEDS: METOPROLOL SUCCINATE 25 MG TAB XL PO SCH (09:00)
[2021-07-29] MEDS: GABAPENTIN 300 MG CAP PO SCH ×2 (09:00→13:26)
[2021-07-29] MEDS: FUROSEMIDE 20 MG TAB PO SCH (09:00)
[2021-07-29] MEDS: FENOFIBRATE 160 MG TAB PO SCH (09:00)
[2021-07-29 10:00] LABS: BASOPHILS % 0.4 % (0.0-1.0); EOSINOPHILS % 0.1 % (0.0-6.0); HEMATOCRIT 41.5 % (34.2-44.1); HEMOGLOBIN 12.3 g/dL (12.0-16.0); LYMPHOCYTES # (AUTO) 2.8 (1.0-3.2); LYMPHOCYTES % 26.1 % (18.0-39.1); MEAN CORPUSCULAR HEMOGLOBIN 25.3 pg (28-32); MEAN CORPUSCULAR HGB CONC 29.6 g/dL (31-35); MEAN CORPUSCULAR VOLUME 85.4 fL (81-99); MONOCYTES # (AUTO) 0.7 (0.2-0.8); MONOCYTES % 6.2 % (4.4-11.3); NEUTROPHILS # (AUTO) 7.1 (2.1-6.9); NEUTROPHILS % 66.9 % (38.7-80.0); PLATELET COUNT 308 x10e3/uL (140-360); RED BLOOD COUNT 4.86 x10e6/uL (3.6-5.1); RED CELL DISTRIBUTION WIDTH 15.9 % (11.7-14.4)
[2021-07-29 10:15] LABS: ANION GAP 12.5 mmol/L (8-16); CALCIUM 8.5 mg/dL (8.4-10.2); CREATININE, SERUM 0.76 mg/dL (0.57-1.11); POTASSIUM 3.5 mmol/L (3.5-5.1)
[2021-07-29] MEDS: SERTRALINE HCL 50 MG TAB PO SCH (12:06)
[2021-07-29 12:18] VITALS: BP 132/66
[2021-07-29] MEDS ORDERED: Vancomycin IV 1 GM in SODIUM CHLORIDE 0.9% 250ML 250 ML IV SCH (12:30)
[2021-07-29] MEDS ORDERED: DOXYCYCLINE HY100 MG PO (13:35)
== END 2021-07-29 14:18 | disposition home or self-care (01) | DRG 291 ==
LOC: ER 08:40 → ERHOLD 10:07 → MED/SURG2 14:20 → OBSVTOIN 07-26 15:54
PROVIDERS: ADMIT Internal Medicine; ATTEND Internal Medicine
DX: I11.0 Hypertensive heart disease with heart failure (principal); J18.9 Pneumonia, unspecified organism; J96.01 Acute respiratory failure with hypoxia; I50.33 Acute on chronic diastolic (congestive) heart failure; Z20.822 Contact with and (suspected) exposure to COVID-19; E03.9 Hypothyroidism, unspecified; I10 Essential (primary) hypertension; E66.9 Obesity, unspecified; Z68.28 Body mass index [BMI] 28.0-28.9, adult; E78.5 Hyperlipidemia, unspecified; F32.A Depression, unspecified
CPT/HCPCS: 36415; 71045; 78580; 80048; 80053; 80202; 83605; 83735; 83880; 84484; 85025; 85379; 87040; 87071; 87205; 93005; 93306; 94640; 94799; 97139; 99251; 99284; A9540; G0378; J0696; J1940; J2405; J3370; J7050; U0002

== ENCOUNTER 2022-04-26 05:54 | Inpatient (IN) | payer MEDICARE ==
[~2022-04-26] VITALS: Ht 157.5 cm; Wt 73.5 kg
[~2022-04-26 05:54] MED LIST changes: +DOXYCYCLINE HY100 MG PO; +LEVOTHYROXINE112 MCG PO; +METFORMIN HCL500 MG PO; +NEURONTIN300 MG PO
[2022-04-26] MEDS ORDERED: ACETAMINOPHEN 1000 MG/100 ML IV STA (06:05)
[2022-04-26] MEDS ORDERED: METHYLPREDNISOLONE SOD SUCC 125 MG/2ML VIAL IV ONE (06:15)
[2022-04-26] MEDS ORDERED: FUROSEMIDE INJ 10 MG/ML 4 ML VIAL IV ONE (06:30)
[2022-04-26 06:32] LABS: BASOPHILS % 0.3 % (0.0-1.0); EOSINOPHILS % 0.1 % (0.0-6.0); HEMATOCRIT 37.5 % (34.2-44.1); MEAN CORPUSCULAR HEMOGLOBIN 24.3 pg (28-32); MEAN CORPUSCULAR HGB CONC 29.3 g/dL (31-35); MONOCYTES # (AUTO) 0.9 (0.2-0.8); MONOCYTES % 8.6 % (4.4-11.3); NEUTROPHILS # (AUTO) 6.3 (2.1-6.9); NEUTROPHILS % 61.6 % (38.7-80.0); PLATELET COUNT 232 x10e3/uL (140-360); RED BLOOD COUNT 4.52 x10e6/uL (3.6-5.1); RED CELL DISTRIBUTION WIDTH 17.3 % (11.7-14.4)
[2022-04-26 06:43] LABS: INR 1.22; PROTHROMBIN TIME 16.5 seconds (11.9-14.5)
[2022-04-26 06:44] LABS: PARTIAL THROMBOPLASTIN TIME 41.1 seconds (23.8-35.5)
[2022-04-26 06:54] LABS: ALBUMIN 3.5 g/dL (3.5-5.0); ALKALINE PHOSPHATASE 77 IU/L (40-150); ANION GAP 14.5 mmol/L (8-16); BLOOD UREA NITROGEN 10 mg/dL (7-26); BUN/CREATININE RATIO 11 (6-25); CALCIUM 8.5 mg/dL (8.4-10.2); CARBON DIOXIDE 25 mmol/L (22-29); CHLORIDE 105 mmol/L (98-107); CREATININE, SERUM 0.88 mg/dL (0.57-1.11); GLUCOSE 110 mg/dL (74-118); POTASSIUM 3.5 mmol/L (3.5-5.1); SODIUM 141 mmol/L (136-145)
[2022-04-26 06:55] LABS: ALANINE AMINOTRANSFERASE < 6 IU/L (0-55)
[2022-04-26 06:59] LABS: CLARITY,URINE CLOUDY (CLEAR); COLOR,URINE YELLOW (YELLOW); LEUKOCYTE ESTERASE ,URINE TRACE (NEGATIVE); NITRITE,URINE POSITIVE (NEGATIVE)
[2022-04-26 07:00] LABS: KETONES,URINE NEGATIVE (NEGATIVE); PROTEIN,URINE DIPSTICK TRACE (NEGATIVE); URINE UROBILINOGEN 0.2 mg/dL (0.2 - 1)
[2022-04-26 07:13] LABS: BACTERIA,URINE MANY /HPF; EPITHELIAL CELLS,URINE MODERATE /LPF
[2022-04-26] MEDS ORDERED: FLUCONAZOLE 200 MG/100 ML 100 ML IV SCH (07:30)
[2022-04-26] MEDS ORDERED: ONDANSETRON HCL INJ 2MG/ML 2ML 2 MG/ML VIAL IV PRN (07:45)
[2022-04-26] MEDS ORDERED: DEXTROSE 50% SYRINGE 50 ML IV PRN (07:45)
[2022-04-26] MEDS: INSULIN REGULAR, HUMAN 100 UNIT/1 ML SQ SCH ×3 (07:53→21:00)
[2022-04-26] MEDS: POTASSIUM CHLORIDE 20 MEQ TAB CR PO SCH ×2 (13:07→16:31)
[2022-04-26] MEDS: METOPROLOL SUCCINATE 25 MG TAB XL PO SCH (13:08)
[2022-04-26 13:14] VITALS: BP 151/79
[2022-04-26 15:36] VITALS: BP 151/79
[2022-04-26] MEDS: ASCORBIC ACID 500 MG TAB PO SCH (16:31)
[2022-04-26] MEDS: ENOXAPARIN 30 MG/0.3 ML SYR SC SCH (16:31)
[2022-04-26] MEDS: FUROSEMIDE INJ 10 MG/ML 2 ML VIAL IV SCH (16:31)
[2022-04-26 16:57] VITALS: BP 139/95
[2022-04-26] MEDS ORDERED: ENOXAPARIN SOD INJ 40 MG/0.4 ML SYR SC SCH (17:00)
[2022-04-26] MEDS: ALBUTEROL SULFATE HFA 8GM INHALATION AEROSOL INH SCH (19:25)
[2022-04-26 20:00] VITALS: BP 150/92
[2022-04-26 22:52] VITALS: BP 150/92
[2022-04-27] VITALS (9 sets, daily range): BP systolic 108–141; BP diastolic 68–92
[2022-04-27] MEDS ORDERED: SODIUM CHLORIDE 0.9% 100 ML ONE (05:42)
[2022-04-27 05:45] LABS: BASOPHILS % 0.1 % (0.0-1.0); HEMATOCRIT 34.8 % (34.2-44.1); HEMOGLOBIN 10.9 g/dL (12.0-16.0); LYMPHOCYTES # (AUTO) 0.9 (1.0-3.2); LYMPHOCYTES % 11.9 % (18.0-39.1); MEAN CORPUSCULAR HEMOGLOBIN 24.6 pg (28-32); MEAN CORPUSCULAR HGB CONC 31.3 g/dL (31-35); MEAN CORPUSCULAR VOLUME 78.6 fL (81-99); MONOCYTES # (AUTO) 0.3 (0.2-0.8); MONOCYTES % 4.2 % (4.4-11.3); NEUTROPHILS # (AUTO) 6.4 (2.1-6.9); NEUTROPHILS % 83.5 % (38.7-80.0); PLATELET COUNT 216 x10e3/uL (140-360); RED BLOOD COUNT 4.43 x10e6/uL (3.6-5.1); RED CELL DISTRIBUTION WIDTH 16.8 % (11.7-14.4)
[2022-04-27] MEDS: LEVOTHYROXINE SODIUM 112 MCG TAB PO SCH (05:45)
[2022-04-27 06:01] LABS: CHOL/HDL RATIO 3.3 (3.0-3.6)
[2022-04-27 06:03] LABS: ALBUMIN 3.3 g/dL (3.5-5.0); ALBUMIN/GLOBULIN RATIO 0.9 (0.8-2.0); ALKALINE PHOSPHATASE 69 IU/L (40-150); BLOOD UREA NITROGEN 16 mg/dL (7-26); BUN/CREATININE RATIO 20 (6-25); CALCIUM 8.7 mg/dL (8.4-10.2); CARBON DIOXIDE 26 mmol/L (22-29); CHLORIDE 102 mmol/L (98-107); CREATININE, SERUM 0.79 mg/dL (0.57-1.11); GLUCOSE 152 mg/dL (74-118); SODIUM 141 mmol/L (136-145)
[2022-04-27 06:24] LABS: THYROID STIMULATING HORMONE 3.143 uIU/mL (0.350-4.940)
[2022-04-27 06:30] LABS: ALANINE AMINOTRANSFERASE < 6 IU/L (0-55)
[2022-04-27] MEDS: ALBUTEROL SULFATE HFA 8GM INHALATION AEROSOL INH SCH ×2 (08:00→19:30)
[2022-04-27] MEDS ORDERED: SODIUM CHLORIDE 0.9% 250ML 500 ML ONE (09:02)
[2022-04-27] MEDS: FUROSEMIDE INJ 10 MG/ML 2 ML VIAL IV SCH ×2 (09:05→17:29)
[2022-04-27] MEDS: DEXAMETHASONE SOD PHOS 10 MG/1 ML VIAL IV SCH (09:05)
[2022-04-27] MEDS: FLUCONAZOLE 200 MG/100 ML 100 ML IV SCH (09:05)
[2022-04-27] MEDS: ASPIRIN 81 MG ENTERIC COATED PO SCH (09:06)
[2022-04-27] MEDS: LOSARTAN POTASSIUM 25 MG TAB PO SCH (09:06)
[2022-04-27] MEDS: METOPROLOL SUCCINATE 25 MG TAB XL PO SCH (09:07)
[2022-04-27] MEDS: POTASSIUM CHLORIDE 20 MEQ TAB CR PO SCH ×2 (09:07→17:29)
[2022-04-27] MEDS: ZINC SULFATE 50 MG CAP PO SCH (09:07)
[2022-04-27] MEDS: ENOXAPARIN 30 MG/0.3 ML SYR SC SCH ×2 (09:07→17:30)
[2022-04-27] MEDS: ASCORBIC ACID 500 MG TAB PO SCH ×2 (09:07→17:29)
[2022-04-27] MEDS: INSULIN REGULAR, HUMAN 100 UNIT/1 ML SQ SCH ×4 (09:10→21:43)
[2022-04-27] MEDS: NYSTATIN 15 GM POWDER UD BTL TOP SCH (16:50)
[2022-04-27] MEDS: DOCUSATE SODIUM 100 MG CAP PO SCH (17:29)
[2022-04-27] MEDS ORDERED: TRAZODONE HCL100 MG PO (18:04)
[2022-04-27] MEDS ORDERED: VALTREX1000 MG PO (18:04)
[2022-04-27] MEDS ORDERED: LISINOPRIL2.5 MG PO (18:04)
[2022-04-27] MEDS: TRAZODONE HCL 50 MG TAB PO SCH (21:41)
[2022-04-28] VITALS (8 sets, daily range): BP systolic 119–136; BP diastolic 76–93
[2022-04-28] MEDS: LEVOTHYROXINE SODIUM 112 MCG TAB PO SCH (06:03)
[2022-04-28] MEDS: ALBUTEROL SULFATE HFA 8GM INHALATION AEROSOL INH SCH ×2 (06:18→19:10)
[2022-04-28 07:15] LABS: BASOPHILS % 0.1 % (0.0-1.0); HEMATOCRIT 37.4 % (34.2-44.1); HEMOGLOBIN 11.4 g/dL (12.0-16.0); LYMPHOCYTES # (AUTO) 0.9 (1.0-3.2); LYMPHOCYTES % 9.7 % (18.0-39.1); MEAN CORPUSCULAR HEMOGLOBIN 24.6 pg (28-32); MEAN CORPUSCULAR HGB CONC 30.5 g/dL (31-35); MEAN CORPUSCULAR VOLUME 80.6 fL (81-99); MONOCYTES # (AUTO) 0.3 (0.2-0.8); MONOCYTES % 3.1 % (4.4-11.3); NEUTROPHILS # (AUTO) 7.6 (2.1-6.9); NEUTROPHILS % 86.6 % (38.7-80.0); PLATELET COUNT 259 x10e3/uL (140-360); RED BLOOD COUNT 4.64 x10e6/uL (3.6-5.1); RED CELL DISTRIBUTION WIDTH 17.2 % (11.7-14.4)
[2022-04-28] MEDS: INSULIN REGULAR, HUMAN 100 UNIT/1 ML SQ SCH ×4 (07:30→22:04)
[2022-04-28 07:53] LABS: ANION GAP 16.5 mmol/L (8-16); CALCIUM 8.7 mg/dL (8.4-10.2); CREATININE, SERUM 1.08 mg/dL (0.57-1.11); POTASSIUM 4.5 mmol/L (3.5-5.1)
[2022-04-28] MEDS: FLUCONAZOLE 200 MG/100 ML 100 ML IV SCH (08:24)
[2022-04-28] MEDS: ASPIRIN 81 MG ENTERIC COATED PO SCH (08:25)
[2022-04-28] MEDS: ASCORBIC ACID 500 MG TAB PO SCH ×2 (08:25→17:29)
[2022-04-28] MEDS: FUROSEMIDE INJ 10 MG/ML 2 ML VIAL IV SCH ×2 (08:25→17:29)
[2022-04-28] MEDS: DEXAMETHASONE SOD PHOS 10 MG/1 ML VIAL IV SCH (08:25)
[2022-04-28] MEDS: POTASSIUM CHLORIDE 20 MEQ TAB CR PO SCH ×2 (08:26→17:29)
[2022-04-28] MEDS: ZINC SULFATE 50 MG CAP PO SCH (08:26)
[2022-04-28] MEDS: DOCUSATE SODIUM 100 MG CAP PO SCH ×2 (08:26→17:28)
[2022-04-28] MEDS: LOSARTAN POTASSIUM 25 MG TAB PO SCH (08:26)
[2022-04-28] MEDS: METOPROLOL SUCCINATE 25 MG TAB XL PO SCH (08:27)
[2022-04-28] MEDS: ENOXAPARIN 30 MG/0.3 ML SYR SC SCH ×2 (08:28→17:29)
[2022-04-28] MEDS: NYSTATIN 15 GM POWDER UD BTL TOP SCH ×2 (08:47→17:29)
[2022-04-28] MEDS ORDERED: MEROPENEM 1 GM in SODIUM CHLORIDE 0.9% 100 ML IV SCH (14:00)
[2022-04-28] MEDS: TRAZODONE HCL 50 MG TAB PO SCH (21:44)
[2022-04-28] MEDS: INSULIN GLARGINE 100 UNITS/ML VIAL SQ SCH (22:05)
[2022-04-29] VITALS (7 sets, daily range): BP systolic 96–138; BP diastolic 74–99
[2022-04-29] MEDS ORDERED: SODIUM CHLORIDE 0.9% 250ML 250 ML ONE (00:10)
[2022-04-29] MEDS ORDERED: MEROPENEM 1 GM in SODIUM CHLORIDE 0.9% 100 ML IV SCH (06:00)
[2022-04-29] MEDS: LEVOTHYROXINE SODIUM 112 MCG TAB PO SCH (06:00)
[2022-04-29] MEDS: ALBUTEROL SULFATE HFA 8GM INHALATION AEROSOL INH SCH ×2 (06:20→19:43)
[2022-04-29] MEDS: ASPIRIN 81 MG ENTERIC COATED PO SCH (08:48)
[2022-04-29] MEDS: POTASSIUM CHLORIDE 20 MEQ TAB CR PO SCH (08:48)
[2022-04-29] MEDS: DEXAMETHASONE SOD PHOS 10 MG/1 ML VIAL IV SCH (08:49)
[2022-04-29] MEDS: FUROSEMIDE INJ 10 MG/ML 2 ML VIAL IV SCH ×2 (08:49→17:52)
[2022-04-29] MEDS: ENOXAPARIN 30 MG/0.3 ML SYR SC SCH ×2 (08:49→17:53)
[2022-04-29] MEDS: DOCUSATE SODIUM 100 MG CAP PO SCH ×2 (08:49→17:52)
[2022-04-29] MEDS: METOPROLOL SUCCINATE 25 MG TAB XL PO SCH (08:50)
[2022-04-29] MEDS: LOSARTAN POTASSIUM 25 MG TAB PO SCH (08:51)
[2022-04-29] MEDS: NYSTATIN 15 GM POWDER UD BTL TOP SCH ×2 (08:55→17:53)
[2022-04-29] MEDS: ASCORBIC ACID 500 MG TAB PO SCH ×2 (08:55→17:52)
[2022-04-29] MEDS: ZINC SULFATE 50 MG CAP PO SCH (08:56)
[2022-04-29] MEDS: INSULIN REGULAR, HUMAN 100 UNIT/1 ML SQ SCH ×4 (10:42→21:32)
[2022-04-29] MEDS: TRAZODONE HCL 50 MG TAB PO SCH (21:26)
[2022-04-29] MEDS: INSULIN GLARGINE 100 UNITS/ML VIAL SQ SCH (21:35)
[2022-04-30] VITALS (9 sets, daily range): BP systolic 117–140; BP diastolic 63–90
[2022-04-30 06:13] LABS: HEMATOCRIT 40.3 % (34.2-44.1); LYMPHOCYTES % 15.6 % (18.0-39.1); MEAN CORPUSCULAR HEMOGLOBIN 24.4 pg (28-32); MEAN CORPUSCULAR HGB CONC 29.8 g/dL (31-35); MEAN CORPUSCULAR VOLUME 81.9 fL (81-99); MONOCYTES % 5.8 % (4.4-11.3); NEUTROPHILS % 78.3 % (38.7-80.0); PLATELET COUNT 295 x10e3/uL (140-360); RED BLOOD COUNT 4.92 x10e6/uL (3.6-5.1); RED CELL DISTRIBUTION WIDTH 17.2 % (11.7-14.4)
[2022-04-30 06:14] LABS: LYMPHOCYTES # (AUTO) 1.4 (1.0-3.2); MONOCYTES # (AUTO) 0.5 (0.2-0.8)
[2022-04-30] MEDS: LEVOTHYROXINE SODIUM 112 MCG TAB PO SCH (06:36)
[2022-04-30 06:48] LABS: ALBUMIN 3.5 g/dL (3.5-5.0); ALBUMIN/GLOBULIN RATIO 1.1 (0.8-2.0); ANION GAP 17.8 mmol/L (8-16); CREATININE, SERUM 0.97 mg/dL (0.57-1.11); MAGNESIUM 1.8 MG/DL (1.3-2.1); POTASSIUM 3.8 mmol/L (3.5-5.1)
[2022-04-30] MEDS: ALBUTEROL SULFATE HFA 8GM INHALATION AEROSOL INH SCH ×2 (07:20→19:55)
[2022-04-30] MEDS: DOCUSATE SODIUM 100 MG CAP PO SCH ×2 (09:56→17:06)
[2022-04-30] MEDS: FUROSEMIDE INJ 10 MG/ML 2 ML VIAL IV SCH ×2 (09:56→17:06)
[2022-04-30] MEDS: ASCORBIC ACID 500 MG TAB PO SCH ×2 (09:56→17:06)
[2022-04-30] MEDS: ASPIRIN 81 MG ENTERIC COATED PO SCH (09:56)
[2022-04-30] MEDS: DEXAMETHASONE SOD PHOS 10 MG/1 ML VIAL IV SCH (09:56)
[2022-04-30] MEDS: ZINC SULFATE 50 MG CAP PO SCH (09:56)
[2022-04-30] MEDS: LOSARTAN POTASSIUM 25 MG TAB PO SCH (09:57)
[2022-04-30] MEDS: METOPROLOL SUCCINATE 25 MG TAB XL PO SCH (09:57)
[2022-04-30] MEDS: ENOXAPARIN 30 MG/0.3 ML SYR SC SCH ×2 (09:58→17:06)
[2022-04-30] MEDS: NYSTATIN 15 GM POWDER UD BTL TOP SCH ×2 (09:58→17:06)
[2022-04-30] MEDS: INSULIN REGULAR, HUMAN 100 UNIT/1 ML SQ SCH ×4 (10:57→23:48)
[2022-04-30] MEDS: TRAZODONE HCL 50 MG TAB PO SCH (23:46)
[2022-04-30] MEDS: INSULIN GLARGINE 100 UNITS/ML VIAL SQ SCH (23:47)
[2022-05-01 00:44] VITALS: BP 136/87
[2022-05-01 04:00] VITALS: BP 127/68
[2022-05-01 05:37] VITALS: BP 136/87
[2022-05-01] MEDS: LEVOTHYROXINE SODIUM 112 MCG TAB PO SCH (06:35)
[2022-05-01] MEDS: ALBUTEROL SULFATE HFA 8GM INHALATION AEROSOL INH SCH (06:40)
[2022-05-01] MEDS: INSULIN REGULAR, HUMAN 100 UNIT/1 ML SQ SCH (07:30)
[2022-05-01] MEDS ORDERED: ONDANSETRON HCL 4 MG ORAL DISINTEGRATING TAB PO PRN (08:30)
[2022-05-01] MEDS: METOPROLOL SUCCINATE 25 MG TAB XL PO SCH (08:40)
[2022-05-01] MEDS: DEXAMETHASONE SOD PHOS 10 MG/1 ML VIAL IV SCH (08:40)
[2022-05-01] MEDS: LOSARTAN POTASSIUM 25 MG TAB PO SCH (08:40)
[2022-05-01] MEDS: DOCUSATE SODIUM 100 MG CAP PO SCH (08:40)
[2022-05-01] MEDS: ASPIRIN 81 MG ENTERIC COATED PO SCH (08:40)
[2022-05-01] MEDS: ASCORBIC ACID 500 MG TAB PO SCH (08:41)
[2022-05-01] MEDS: NYSTATIN 15 GM POWDER UD BTL TOP SCH (08:41)
[2022-05-01] MEDS: ZINC SULFATE 50 MG CAP PO SCH (08:41)
[2022-05-01] MEDS: ENOXAPARIN 30 MG/0.3 ML SYR SC SCH (08:41)
[2022-05-01 08:45] VITALS: BP 136/95
[2022-05-01] MEDS ORDERED: FUROSEMIDE 20 MG TAB PO SCH (09:00)
== END 2022-05-01 09:08 | disposition home or self-care (01) | DRG 177 ==
LOC: ER 06:01 → ERHOLD 07:41 → EDBD 07:41 → MED/SURG2 12:28
PROVIDERS: ADMIT Internal Medicine; ATTEND Internal Medicine
PROC: 8E0ZXY6 Isolation (ICD-10-PCS; 2022-04-26)
PROC: 3E0333Z Introduction of Anti-inflammatory into Peripheral Vein, Percutaneous Approach (ICD-10-PCS; principal; 2022-04-27)
DX: U07.1 COVID-19 (principal); I50.33 Acute on chronic diastolic (congestive) heart failure; J12.82 Pneumonia due to coronavirus disease 2019; J96.21 Acute and chronic respiratory failure with hypoxia; Z16.12 Extended spectrum beta lactamase (ESBL) resistance; N30.00 Acute cystitis without hematuria; D63.8 Anemia in other chronic diseases classified elsewhere; I11.0 Hypertensive heart disease with heart failure; Z99.81 Dependence on supplemental oxygen; J44.9 Chronic obstructive pulmonary disease, unspecified; B37.2 Candidiasis of skin and nail; E78.5 Hyperlipidemia, unspecified; E78.00 Pure hypercholesterolemia, unspecified; E66.9 Obesity, unspecified; I25.10 Atherosclerotic heart disease of native coronary artery without angina pectoris; K21.9 Gastro-esophageal reflux disease without esophagitis; N61.0 Mastitis without abscess; E03.9 Hypothyroidism, unspecified; L30.3 Infective dermatitis; B96.20 Unspecified Escherichia coli [E. coli] as the cause of diseases classified elsewhere; I25.2 Old myocardial infarction; Z98.84 Bariatric surgery status; Z90.49 Acquired absence of other specified parts of digestive tract; Z90.710 Acquired absence of both cervix and uterus; Z87.891 Personal history of nicotine dependence; Z88.5 Allergy status to narcotic agent; Z88.2 Allergy status to sulfonamides; Z91.041 Radiographic dye allergy status; Z82.49 Family history of ischemic heart disease and other diseases of the circulatory system; Z87.01 Personal history of pneumonia (recurrent); Z87.898 Personal history of other specified conditions; Z68.29 Body mass index [BMI] 29.0-29.9, adult
CPT/HCPCS: 36415; 71045; 80048; 80053; 80061; 81001; 82948; 83605; 83735; 83880; 84443; 85025; 85610; 85730; 87040; 87086; 87186; 87400; 93005; 93970; 94799; 96361; 99285; J0456; J0696; J1100; J1450; J1650; J1817; J1940; J2185; J2405; J2930; J7050

== ENCOUNTER 2022-08-14 07:48 | Inpatient (IN) | payer MEDICARE ==
[~2022-08-14] VITALS: Ht 157.5 cm; Wt 63.5 kg
[~2022-08-14 07:48] MED LIST changes: +TRAZODONE HCL100 MG PO; +VALTREX1000 MG PO
[2022-08-14 08:43] LABS: BASOPHILS % 0.4 % (0.0-1.0); HEMATOCRIT 38.5 % (34.2-44.1); HEMOGLOBIN 11.4 g/dL (12.0-16.0); LYMPHOCYTES # (AUTO) 1.9 (1.0-3.2); MEAN CORPUSCULAR HEMOGLOBIN 23.7 pg (28-32); MEAN CORPUSCULAR HGB CONC 29.6 g/dL (31-35); MEAN CORPUSCULAR VOLUME 79.9 fL (81-99); MONOCYTES # (AUTO) 0.9 (0.2-0.8); MONOCYTES % 9.7 % (4.4-11.3); NEUTROPHILS # (AUTO) 6.8 (2.1-6.9); NEUTROPHILS % 70.3 % (38.7-80.0); PLATELET COUNT 238 x10e3/uL (140-360); RED BLOOD COUNT 4.82 x10e6/uL (3.6-5.1); RED CELL DISTRIBUTION WIDTH 20.8 % (11.7-14.4)
[2022-08-14] MEDS ORDERED: ASPIRIN 81 MG CHEW TAB PO STA (08:43)
[2022-08-14 08:49] LABS: CLARITY,URINE CLEAR (CLEAR); COLOR,URINE YELLOW (YELLOW); KETONES,URINE NEGATIVE (NEGATIVE); LEUKOCYTE ESTERASE ,URINE NEGATIVE (NEGATIVE); NITRITE,URINE NEGATIVE (NEGATIVE); PROTEIN,URINE DIPSTICK NEGATIVE (NEGATIVE); URINE UROBILINOGEN 1 mg/dL (0.2 - 1)
[2022-08-14 08:59] LABS: BACTERIA,URINE FEW /HPF; EPITHELIAL CELLS,URINE FEW /LPF; RBC,URINE 0-5 /HPF (0-5); WBC,URINE (MAN) 0-5 /HPF (0-5)
[2022-08-14 09:02] LABS: ALBUMIN 3.1 g/dL (3.5-5.0); ALBUMIN/GLOBULIN RATIO 0.9 (0.8-2.0); ANION GAP 13.2 mmol/L (8-16); CALCIUM 8.8 mg/dL (8.4-10.2); CREATININE, SERUM 0.82 mg/dL (0.57-1.11); POTASSIUM 4.2 mmol/L (3.5-5.1)
[2022-08-14 09:51] LABS: ANISOCYTOSIS MODERATE; HYPOCHROMASIA SLIGHT; PLATELET ESTIMATE ADEQUATE; PLATELET MORPHOLOGY COMMENT NORMAL; RBC MORPHOLOGY COMMENT ABNORMAL
[2022-08-14] MEDS ORDERED: ONDANSETRON HCL INJ 2MG/ML 2ML 2 MG/ML VIAL IV PRN (12:15)
[2022-08-14] MEDS ORDERED: SODIUM CHLORIDE FLUSH 10 ML SYR INJ PRN (12:15)
[2022-08-14] MEDS ORDERED: ASPIRIN 81 MG CHEW TAB PO ONE (12:15)
[2022-08-14] MEDS: FUROSEMIDE INJ 10 MG/ML 4 ML VIAL IV SCH (13:28)
[2022-08-14 18:31] VITALS: BP 127/66
[2022-08-14] MEDS ORDERED: DEXTROSE 50% SYRINGE 50 ML IV PRN (19:30)
[2022-08-14 19:45] VITALS: BP 125/71
[2022-08-14 20:00] VITALS: BP 125/71
[2022-08-14 21:00] VITALS: BP 125/71
[2022-08-14] MEDS: INSULIN LISPRO 100 UNIT/1 ML 3ML VIAL SQ SCH (21:00)
[2022-08-14] MEDS ORDERED: FENOFIBRATE145 MG PO (22:05)
[2022-08-14] MEDS ORDERED: METOPROLOL SUCC25 MG PO (22:05)
[2022-08-14] MEDS ORDERED: METOCLOPRAMIDE10 MG PO (22:05)
[2022-08-14] MEDS ORDERED: MACROBID 100 M100 MG PO (22:05)
[2022-08-14] MEDS ORDERED: AZO BLADDER CO300 MG (22:05)
[2022-08-14] MEDS: GABAPENTIN 300 MG CAP PO SCH (22:06)
[2022-08-14] MEDS: TRAZODONE HCL 50 MG TAB PO SCH (22:06)
[2022-08-15] VITALS (7 sets, daily range): BP systolic 95–142; BP diastolic 52–92
[2022-08-15 05:01] LABS: BASOPHILS % 0.5 % (0.0-1.0); HEMOGLOBIN 11.8 g/dL (12.0-16.0); LYMPHOCYTES # (AUTO) 1.4 (1.0-3.2); MEAN CORPUSCULAR HEMOGLOBIN 23.6 pg (28-32); MEAN CORPUSCULAR HGB CONC 30.3 g/dL (31-35); MEAN CORPUSCULAR VOLUME 78.2 fL (81-99); MONOCYTES # (AUTO) 0.7 (0.2-0.8); MONOCYTES % 9.4 % (4.4-11.3); NEUTROPHILS # (AUTO) 5.6 (2.1-6.9); NEUTROPHILS % 71.6 % (38.7-80.0); PLATELET COUNT 205 x10e3/uL (140-360); RED BLOOD COUNT 4.99 x10e6/uL (3.6-5.1)
[2022-08-15 05:22] LABS: ALBUMIN/GLOBULIN RATIO 0.8 (0.8-2.0); ANION GAP 17.5 mmol/L (8-16); CALCIUM 8.6 mg/dL (8.4-10.2); CREATININE, SERUM 0.79 mg/dL (0.57-1.11); POTASSIUM 3.5 mmol/L (3.5-5.1)
[2022-08-15 05:46] LABS: CREATINE KINASE MB 0.9 ng/mL (0-5.0)
[2022-08-15] MEDS ORDERED: LEVOTHYROXINE SODIUM 112 MCG TAB PO SCH (06:00)
[2022-08-15] MEDS: INSULIN LISPRO 100 UNIT/1 ML 3ML VIAL SQ SCH ×4 (07:30→21:09)
[2022-08-15] MEDS: VALACYCLOVIR HCL 500 MG TAB PO SCH (08:55)
[2022-08-15] MEDS: METFORMIN HCL 500 MG TAB PO SCH ×2 (08:55→17:12)
[2022-08-15] MEDS: LISINOPRIL 2.5 MG TAB PO SCH (08:55)
[2022-08-15] MEDS: GABAPENTIN 300 MG CAP PO SCH ×4 (08:56→21:08)
[2022-08-15] MEDS: SERTRALINE HCL 50 MG TAB PO SCH (08:56)
[2022-08-15] MEDS: PANTOPRAZOLE SOD 40 MG TABEC PO SCH (09:00)
[2022-08-15] MEDS: FUROSEMIDE INJ 10 MG/ML 4 ML VIAL IV SCH (09:00)
[2022-08-15] MEDS ORDERED: ONDANSETRON HCL 4 MG ORAL DISINTEGRATING TAB PO PRN (13:30)
[2022-08-15] MEDS ORDERED: ENOXAPARIN SOD INJ 40 MG/0.4 ML SYR SC SCH (17:00)
[2022-08-15] MEDS: APIXAB 2.5 MG TABLET PO SCH (17:12)
[2022-08-15] MEDS: TRAZODONE HCL 50 MG TAB PO SCH (21:07)
[2022-08-16] VITALS (8 sets, daily range): BP systolic 87–143; BP diastolic 54–77
[2022-08-16] MEDS: MEROPENEM 1 GM in SODIUM CHLORIDE 0.9% 100 ML IV SCH ×4 (00:50→20:53)
[2022-08-16] MEDS ORDERED: SODIUM CHLORIDE 0.9% 250ML 250 ML ONE (01:08)
[2022-08-16 04:51] LABS: BASOPHILS % 0.4 % (0.0-1.0); HEMATOCRIT 37.3 % (34.2-44.1); HEMOGLOBIN 11.5 g/dL (12.0-16.0); LYMPHOCYTES # (AUTO) 1.6 (1.0-3.2); MEAN CORPUSCULAR HEMOGLOBIN 23.6 pg (28-32); MEAN CORPUSCULAR HGB CONC 30.8 g/dL (31-35); MEAN CORPUSCULAR VOLUME 76.6 fL (81-99); MONOCYTES % 10.1 % (4.4-11.3); NEUTROPHILS # (AUTO) 6.8 (2.1-6.9); NEUTROPHILS % 72.1 % (38.7-80.0); PLATELET COUNT 239 x10e3/uL (140-360); RED BLOOD COUNT 4.87 x10e6/uL (3.6-5.1); RED CELL DISTRIBUTION WIDTH 20.1 % (11.7-14.4)
[2022-08-16 05:15] LABS: ALBUMIN 2.9 g/dL (3.5-5.0); ALBUMIN/GLOBULIN RATIO 0.8 (0.8-2.0); ALKALINE PHOSPHATASE 73 IU/L (40-150); ANION GAP 15.7 mmol/L (8-16); BLOOD UREA NITROGEN 27 mg/dL (7-26); BUN/CREATININE RATIO 24 (6-25); CALCIUM 8.7 mg/dL (8.4-10.2); CARBON DIOXIDE 29 mmol/L (22-29); CHLORIDE 95 mmol/L (98-107); CREATININE, SERUM 1.13 mg/dL (0.57-1.11); GLUCOSE 159 mg/dL (74-118); POTASSIUM 3.7 mmol/L (3.5-5.1); SODIUM 136 mmol/L (136-145)
[2022-08-16 05:28] LABS: ALANINE AMINOTRANSFERASE < 6 IU/L (0-55)
[2022-08-16] MEDS: LEVOTHYROXINE SODIUM 88 MCG TAB PO SCH (06:09)
[2022-08-16] MEDS: INSULIN LISPRO 100 UNIT/1 ML 3ML VIAL SQ SCH ×4 (07:30→20:55)
[2022-08-16] MEDS: FUROSEMIDE INJ 10 MG/ML 4 ML VIAL IV SCH (09:00)
[2022-08-16] MEDS: LISINOPRIL 2.5 MG TAB PO SCH (09:00)
[2022-08-16] MEDS: PANTOPRAZOLE SOD 40 MG TABEC PO SCH (09:55)
[2022-08-16] MEDS: APIXAB 2.5 MG TABLET PO SCH ×2 (09:55→17:28)
[2022-08-16] MEDS: VALACYCLOVIR HCL 500 MG TAB PO SCH (09:55)
[2022-08-16] MEDS: SERTRALINE HCL 50 MG TAB PO SCH (09:55)
[2022-08-16] MEDS: METFORMIN HCL 500 MG TAB PO SCH ×2 (09:55→17:28)
[2022-08-16] MEDS: GABAPENTIN 300 MG CAP PO SCH ×5 (09:55→20:52)
[2022-08-16] MEDS: METOPROLOL SUCCINATE 25 MG TAB XL PO SCH (10:05)
[2022-08-16] MEDS: TRAZODONE HCL 50 MG TAB PO SCH (20:52)
[2022-08-17] VITALS (8 sets, daily range): BP systolic 102–147; BP diastolic 56–74
[2022-08-17] MEDS: LEVOTHYROXINE SODIUM 88 MCG TAB PO SCH (05:48)
[2022-08-17] MEDS: MEROPENEM 1 GM in SODIUM CHLORIDE 0.9% 100 ML IV SCH (05:49)
[2022-08-17 06:04] LABS: ANION GAP 14.1 mmol/L (8-16); CREATININE, SERUM 0.8 mg/dL (0.57-1.11); POTASSIUM 4.1 mmol/L (3.5-5.1)
[2022-08-17] MEDS: INSULIN LISPRO 100 UNIT/1 ML 3ML VIAL SQ SCH ×4 (07:30→21:22)
[2022-08-17] MEDS: VALACYCLOVIR HCL 500 MG TAB PO SCH (08:47)
[2022-08-17] MEDS: FUROSEMIDE INJ 10 MG/ML 4 ML VIAL IV SCH (08:52)
[2022-08-17] MEDS: APIXAB 2.5 MG TABLET PO SCH ×2 (08:52→17:41)
[2022-08-17] MEDS: GABAPENTIN 300 MG CAP PO SCH ×4 (08:52→21:13)
[2022-08-17] MEDS: METFORMIN HCL 500 MG TAB PO SCH ×2 (08:52→17:41)
[2022-08-17] MEDS: LISINOPRIL 2.5 MG TAB PO SCH (08:53)
[2022-08-17] MEDS: METOPROLOL SUCCINATE 25 MG TAB XL PO SCH (08:53)
[2022-08-17] MEDS: PANTOPRAZOLE SOD 40 MG TABEC PO SCH (08:53)
[2022-08-17] MEDS: SERTRALINE HCL 50 MG TAB PO SCH (08:54)
[2022-08-17] MEDS: TRAZODONE HCL 50 MG TAB PO SCH (21:13)
[2022-08-18] VITALS (8 sets, daily range): BP systolic 97–137; BP diastolic 47–78
[2022-08-18] MEDS: LEVOTHYROXINE SODIUM 88 MCG TAB PO SCH (05:18)
[2022-08-18 06:01] LABS: ANION GAP 14.7 mmol/L (8-16); CALCIUM 9.4 mg/dL (8.4-10.2); CREATININE, SERUM 0.83 mg/dL (0.57-1.11); POTASSIUM 4.7 mmol/L (3.5-5.1)
[2022-08-18] MEDS: INSULIN LISPRO 100 UNIT/1 ML 3ML VIAL SQ SCH ×4 (08:30→21:35)
[2022-08-18] MEDS: GABAPENTIN 300 MG CAP PO SCH ×4 (08:36→21:31)
[2022-08-18] MEDS: APIXAB 2.5 MG TABLET PO SCH ×2 (08:36→17:37)
[2022-08-18] MEDS: METFORMIN HCL 500 MG TAB PO SCH ×2 (08:36→17:37)
[2022-08-18] MEDS: LISINOPRIL 2.5 MG TAB PO SCH (08:36)
[2022-08-18] MEDS: PANTOPRAZOLE SOD 40 MG TABEC PO SCH (08:36)
[2022-08-18] MEDS: METOPROLOL SUCCINATE 25 MG TAB XL PO SCH (08:37)
[2022-08-18] MEDS: SERTRALINE HCL 50 MG TAB PO SCH (08:37)
[2022-08-18] MEDS: FUROSEMIDE INJ 10 MG/ML 4 ML VIAL IV SCH (08:48)
[2022-08-18] MEDS: TRAZODONE HCL 50 MG TAB PO SCH (21:31)
[2022-08-19] VITALS (7 sets, daily range): BP systolic 101–132; BP diastolic 47–64
[2022-08-19] MEDS: LEVOTHYROXINE SODIUM 88 MCG TAB PO SCH (05:33)
[2022-08-19] MEDS: INSULIN LISPRO 100 UNIT/1 ML 3ML VIAL SQ SCH ×4 (07:30→21:00)
[2022-08-19] MEDS: METFORMIN HCL 500 MG TAB PO SCH ×2 (08:47→17:26)
[2022-08-19] MEDS: GABAPENTIN 300 MG CAP PO SCH ×4 (08:48→21:48)
[2022-08-19] MEDS: APIXAB 2.5 MG TABLET PO SCH ×2 (08:48→17:26)
[2022-08-19] MEDS: METOPROLOL SUCCINATE 25 MG TAB XL PO SCH (08:49)
[2022-08-19] MEDS: PANTOPRAZOLE SOD 40 MG TABEC PO SCH (08:49)
[2022-08-19] MEDS: FUROSEMIDE 40 MG TAB PO SCH (08:49)
[2022-08-19] MEDS: LISINOPRIL 2.5 MG TAB PO SCH (08:49)
[2022-08-19] MEDS: SERTRALINE HCL 50 MG TAB PO SCH (08:49)
[2022-08-19] MEDS: TRAZODONE HCL 50 MG TAB PO SCH (21:48)
[2022-08-20] VITALS: BP 121/65
[2022-08-20 02:51] VITALS: BP 121/65
[2022-08-20] MEDS: LEVOTHYROXINE SODIUM 88 MCG TAB PO SCH (06:35)
[2022-08-20] MEDS: INSULIN LISPRO 100 UNIT/1 ML 3ML VIAL SQ SCH ×2 (07:30→11:30)
[2022-08-20 08:00] VITALS: BP 109/70
[2022-08-20] MEDS: METFORMIN HCL 500 MG TAB PO SCH (09:00)
[2022-08-20 09:22] VITALS: BP 109/70
[2022-08-20] MEDS: FUROSEMIDE 40 MG TAB PO SCH (09:24)
[2022-08-20] MEDS: APIXAB 2.5 MG TABLET PO SCH (09:24)
[2022-08-20] MEDS: LISINOPRIL 2.5 MG TAB PO SCH (09:24)
[2022-08-20] MEDS: SERTRALINE HCL 50 MG TAB PO SCH (09:24)
[2022-08-20] MEDS: PANTOPRAZOLE SOD 40 MG TABEC PO SCH (09:25)
[2022-08-20] MEDS: METOPROLOL SUCCINATE 25 MG TAB XL PO SCH (09:25)
[2022-08-20] MEDS: GABAPENTIN 300 MG CAP PO SCH (09:25)
[2022-08-20 12:19] VITALS: BP 116/74
[2022-08-20 20:00] VITALS: BP 124/49
== END 2022-08-20 12:47 | DRG 291 ==
LOC: ER 07:51 → ERHOLD 12:15 → MED/SURG 18:04
PROVIDERS: ADMIT Internal Medicine; ATTEND Internal Medicine
DX: I11.0 Hypertensive heart disease with heart failure (principal); I50.23 Acute on chronic systolic (congestive) heart failure; J96.11 Chronic respiratory failure with hypoxia; I48.0 Paroxysmal atrial fibrillation; J44.9 Chronic obstructive pulmonary disease, unspecified; E78.5 Hyperlipidemia, unspecified; E11.9 Type 2 diabetes mellitus without complications; E03.9 Hypothyroidism, unspecified; D64.9 Anemia, unspecified; K21.9 Gastro-esophageal reflux disease without esophagitis; F32.A Depression, unspecified; I25.10 Atherosclerotic heart disease of native coronary artery without angina pectoris; Z79.01 Long term (current) use of anticoagulants; Z99.81 Dependence on supplemental oxygen; Z20.822 Contact with and (suspected) exposure to COVID-19; Z88.2 Allergy status to sulfonamides; Z79.84 Long term (current) use of oral hypoglycemic drugs; Z95.1 Presence of aortocoronary bypass graft; Z90.49 Acquired absence of other specified parts of digestive tract; Z87.891 Personal history of nicotine dependence
CPT/HCPCS: 36415; 70450; 71045; 80048; 80053; 81001; 82550; 82553; 82948; 83690; 83880; 84443; 84484; 85025; 87086; 93005; 93306; 94799; 99252; 99285; J1940; J2185; J7050